=== PATIENT | female | born 1985 | race Caucasian/White ===

== ENCOUNTER 2017-03-29 19:48 | Inpatient (IN) | payer BC ==
[2017-03-29 20:36] LABS: Hematocrit 43 % (35-47); Hemoglobin 14.4 g/dl (12.0-16.0); Mean Corpuscular HGB Conc 34 g/dl (31-36); Mean Corpuscular Hemoglobin 35 pg (27-31); Mean Corpuscular Volume 104 fL (80-97); Mean Platelet Volume 10 um3 (7.4-10.4); Red Blood Count 4.12 10^6/ul (4.0-5.4); Red Cell Distribution Width 13 % (10.5-15); White Blood Count 16.6 10^3/ul (3.5-10.8)
[2017-03-29 20:38] LABS: Urine Bilirubin Negative (Negative); Urine Glucose Negative (Negative); Urine Nitrite Negative (Negative)
[2017-03-29 20:47] LABS: Benzodiazepine Urine Screen None Detected (None Detect)
[2017-03-29 20:51] LABS: ALT 12 U/L (7-52); AST 17 U/L (13-39); Albumin 4.6 g/dL (3.2-5.2); Alkaline Phosphatase 84 U/L (34-104); Anion Gap 9 mmol/L (2-11); BUN/Creatinine Ratio 16.1 (8-20); Blood Urea Nitrogen 10 mg/dL (6-24); CO2 Carbon Dioxide 22 mmol/L (22-32); Calcium 9.6 mg/dL (8.6-10.3); Chloride 106 mmol/L (101-111); EGFR African American 142.6 (>60); EGFR Non-African American 110.9 (>60); Globulin 2.9 g/dL (2-4); Glucose 140 mg/dL (70-100); Potassium 3.5 mmol/L (3.5-5.0); Sodium 137 mmol/L (133-145); Total Protein 7.5 g/dL (6.4-8.9)
[2017-03-29 21:12] LABS: Acetaminophen < 15 mcg/mL; Alcohol < 10 mg/dL (<10); Salicylate < 2.50 mg/dL (<30)
[2017-03-29 21:22] LABS: TSH (Thyroid Stimulating Horm) 0.52 mcIU/mL (0.34-5.60)
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
[2017-03-30] MEDS ORDERED: Acetaminophen TAB* 325 MG PO PRN (05:33)
[2017-03-30] MEDS ORDERED: Nicotine Inhaler* 10 MG AMP INH PRN (05:33)
[2017-03-30] MEDS ORDERED: Nicotine GUM* 2 MG PO PRN (05:33)
[2017-03-30] MEDS ORDERED: Al Hydrox/Mg Hydrox/Simet LIQ* 30 ML UDC PO PRN (05:33)
[2017-03-30] MEDS ORDERED: Mouth Piece, Nicotine* 1 EACH CARTRIDGE INH SCH (05:33)
[2017-03-30] MEDS: Vitamin THERAPEUTIC TAB PO SCH (09:28)
--- NOTE | 2017-03-30 11:05 | PN ---
MHU: Group Therapy Note - Service Type Service Type: [id number] Group Psychotherapy - Cognitive Behavioral Group Therapy ( CBT):Patient was attentive and participatory in CBT programming this morning, and remained in good behavioral control. Patient expressed positive insights regarding relevant treatment interventions and goals.
[2017-03-30] MEDS ORDERED: FLUoxetine CAP* 10 MG PO SCH ×2 (15:00→18:11)
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
[2017-03-30] MEDS ORDERED: diPHENhydraMINE PO* 50 MG PO SCH (21:00)
[2017-03-31 08:23] VITALS: BP 122/85
[2017-03-31] MEDS: Vitamin THERAPEUTIC TAB PO SCH (08:42)
[2017-03-31] MEDS ORDERED: Venlafaxine EXT RELEASE CAP* 75 MG PO SCH (09:00)
[2017-03-31] MEDS ORDERED: Norethindrone (NF) 0.35 MG TAB PO SCH (09:00)
--- NOTE | 2017-03-31 11:32 | PN ---
MHU: Group Therapy Note - Service Type Service Type: [id number] Group Psychotherapy - Cognitive Behavioral Group Therapy ( CBT):Patient was attentive and participatory in CBT programming this morning, and remained in good behavioral control. Patient expressed positive insights regarding relevant treatment interventions and goals.
--- NOTE | 2017-03-31 12:23 | DS ---
Subjective - Subjective Service Types: [id number] Hosp DC Day Mgmt simple under 30 min Discharge Date: 03/31/17 Discharge Planning - Discharge Planning Medications: Current Medications Acetaminophen (Tylenol Tab*) 650 mg PO Q4H PRN PRN Reason: PAIN or TEMP > 101 F Last Admin: 03/30/17 20:32 Dose: 650 mg Al Hydrox/Mg Hydrox/Simethicone (Maalox Plus*) 30 ml PO Q4H PRN PRN Reason: INDIGESTION Device (Nicotine Mouth Piece*) 1 each INH .[facility] Diphenhydramine HCl (Benadryl Po*) 50 mg PO Q6H PRN PRN Reason: AGITATION/INSOMNIA Last Admin: 03/30/17 05:45 Dose: 50 mg Diphenhydramine HCl (Benadryl Po*) 50 mg PO BEDTIME [facility] Last Admin: 03/30/17 20:31 Dose: 50 mg Fluoxetine HCl (Prozac Cap*) 10 mg PO QAM [facility] Last Admin: 03/31/17 08:42 Dose: 10 mg Multivitamins (Theragran Tab*) 1 tab PO DAILY [facility] Last Admin: 03/31/17 08:42 Dose: 1 tab Nicotine (Nicotine Inhaler*) 10 mg INH Q2H PRN PRN Reason: CRAVING Nicotine Polacrilex (Nicotine Gum*) 2 mg PO Q2H PRN PRN Reason: CRAVING Norethindrone (Pauline (Nf)) 0.35 mg PO DAILY [facility] Last Admin: 03/31/17 08:44 Dose: Not Given Venlafaxine HCl (Effexor Xr Cap*) 150 mg PO DAILY [facility] Last Admin: 03/31/17 08:41 Dose: 150 mg Discharge Planning: Prescriptions provided for discharge [] Yes [] No Follow up care details as per social work arrangements. Patient response to discharge plan: [] eager for discharge [] agreeable with discharge plan [] ambivalent about discharge [] disagrees with discharge today
== END 2017-03-31 13:05 | disposition home or self-care (01) | DRG 754 ==
LOC: ED 19:48 → BSU 03-30 05:07
PROVIDERS: ADMIT Psychiatry & Neurology Psychiatry; ATTEND Psychiatry & Neurology Psychiatry
PROC: GZHZZZZ Group Psychotherapy (ICD-10-PCS; principal; 2017-03-30)
DX: F32.9 Major depressive disorder, single episode, unspecified (principal); F41.9 Anxiety disorder, unspecified; F43.10 Post-traumatic stress disorder, unspecified; Z81.8 Family history of other mental and behavioral disorders; K21.9 Gastro-esophageal reflux disease without esophagitis; F17.210 Nicotine dependence, cigarettes, uncomplicated
CPT/HCPCS: 36415; 80053; 80307; 80320; 80329; 81003; 84443; 85025; 90853; 99222; 99238; A9270-GY; G0480

== ENCOUNTER 2017-04-14 19:01 | Emergency (ER) | payer BC ==
[2017-04-14 20:00] VITALS: BP 122/85
== END 2017-04-14 21:33 | disposition left against medical advice (07) ==
LOC: ED 19:01
DX: T88.7XXA Unspecified adverse effect of drug or medicament, initial encounter (principal); T50.905A Adverse effect of unspecified drugs, medicaments and biological substances, initial encounter; Y92.9 Unspecified place or not applicable; Z53.21 Procedure and treatment not carried out due to patient leaving prior to being seen by health care provider
CPT/HCPCS: 99282

== ENCOUNTER 2017-09-07 18:37 | Emergency (ER) | payer BC, MEDICAID ==
[2017-09-07 18:50] VITALS: BP 140/104
[2017-09-07] MEDS ORDERED: Ciproflox/Dexameth OTIC.SUSP* 7.5 ML BTL RIGHT EAR ONE (19:23)
--- NOTE | 2017-09-07 19:23 | ED ---
Throat Pain/Nasal Congestion - HPI Summary HPI Summary: 31F presents with right ear pain for a week. She states she has had decrease in hearing in that ear. She denies any drainage or itching. She denies any wax in the ear. She has been using flonase and sudafed without relief. She denies any fever. She denies any sinus congestion, sore throat, or post nasal drip. She denies any recent illness. She denies any chest pain, SOB, or cough. She has been using ibuprofen without relief. - History of Current Complaint Chief Complaint: EDEarPain Time Seen by Provider: 09/07/17 18:56 - Allergies/Home Medications Allergies/Adverse Reactions: Allergies Allergy/AdvReac Type Severity Reaction Status Date / Time No Known Allergies Allergy Verified 04/14/17 19:57 PMH/Surg Hx/FS Hx/Imm Hx Endocrine/Hematology History: Denies: Hx Anticoagulant Therapy, Hx Diabetes, Hx Thyroid Disease Cardiovascular History: Denies: Hx Congestive Heart Failure, Hx Hypertension, Hx Pacemaker/ICD Respiratory History: Denies: Hx Asthma, Hx Chronic Obstructive Pulmonary Disease (COPD) GI History: Reports: Hx Gastroesophageal Reflux Disease - CONTROL WITH MEDS, Other GI Disorders - GERD History: Denies: Hx Renal Disease Sensory History: Reports: Hx Contacts or Glasses - GLASSES Denies: Hx Hearing Aid Opthamlomology History: Reports: Hx Contacts or Glasses - GLASSES Neurological History: Denies: Hx Dementia, Hx Seizures Psychiatric History: Reports: Hx Anxiety, Hx Depression - on Prozac Denies: Hx Eating Disorder, Hx Substance Abuse - Surgical History Surgery Procedure, Year, and Place: 09/2008 & 01/2016 CSECTION X 2, [facility] Hx Anesthesia Reactions: No - Immunization History Date of Tetanus Vaccine: 2007 Date of Influenza Vaccine: unk Infectious Disease History: No Infectious Disease History: Reports: Hx Clostridium Difficile Denies: Hx Hepatitis, Hx Human Immunodeficiency Virus (HIV), Hx Shingles, Hx Tuberculosis, Traveled Outside the [place] in Last 30 Days - Family History Known Family History: Positive: Unknown - Social History Alcohol Use: None Substance Use Type: Reports: Marijuana Substance Use Comment - Amount & Last Used: a couple of days ago Smoking Status (MU): Light Every Day Tobacco Smoker Type: Cigarettes Amount Used/How Often: OCCASIONAL 1 CIGARETTE PER DAY, SINCE FEBRUARY OF 2016 Have You Smoked in the Last Year: Yes Review of Systems Negative: Fever Positive: Ear Ache Negative: Chest Pain Negative: Shortness Of Breath All Other Systems Reviewed And Are Negative: Yes Physical Exam Triage Information Reviewed: Yes Vital Signs On Initial Exam: Initial Vitals Temp Pulse Resp BP Pulse Ox 99.3 F 90 18 140/104 99 09/07/17 18:47 09/07/17 18:47 09/07/17 18:47 09/07/17 18:47 09/07/17 18:47 Vital Signs Reviewed: Yes Appearance: Positive: Well-Appearing Skin: Positive: Warm, Dry Head/Face: Positive: Normal Head/Face Inspection Eyes: Positive: Normal, EOMI, NICK, Conjunctiva Clear ENT: Positive: Pharynx normal, TMs normal - fluid behind right ear, Other - TM right edematous and erythematous, tenderness with manipulation tragus. Negative : TM bulging, TM red Respiratory/Lung Sounds: Positive: Clear to Auscultation, Breath Sounds Present Cardiovascular: Positive: Normal, RRR Musculoskeletal: Positive: Normal Neurological: Positive: Normal Psychiatric: Positive: Normal Diagnostics - Vital Signs Vital Signs Temp Pulse Resp BP Pulse Ox 09/07/17 18:47 99.3 F 90 18 140/104 99 - Laboratory Lab Statement: Any lab studies that have been ordered have been reviewed, and results considered in the medical decision making process. EENT Course/Dx - Course Course Of Treatment: 31F presents with right ear pain for a week. She states she has had decrease in hearing in that ear. She denies any drainage or itching. She denies any wax in the ear. She has been using flonase and sudafed without relief. She denies any fever. She denies any sinus congestion, sore throat, or post nasal drip. She denies any recent illness. She denies any chest pain, SOB, or cough. She has been using ibuprofen without relief. on exam right ear canal edematous and erythematous. tm fluid behind but no erythema or buldge. will treat with ciprodex. patient understand and agrees with plan. - Differential Diagnoses Differential Diagnoses: Cerumen Impaction, Otitis Externa, Otitis Media - Diagnoses Provider Diagnoses: Otitis externa Discharge - Discharge Plan Condition: Good Disposition: HOME Patient Education Materials: Otitis Externa (ED) Referrals: Tez Whitten MD [Primary Care Provider] - Additional Instructions: Use 4 drops twice a day for 7 days Continue sudafed and flonase Follow up with primary in a week to make sure resolving Return to ED if develop any new or worsening symptoms
== END 2017-09-07 19:36 | disposition home or self-care (01) ==
LOC: ED 18:37
DX: H60.91 Unspecified otitis externa, right ear (principal); F17.210 Nicotine dependence, cigarettes, uncomplicated; K21.9 Gastro-esophageal reflux disease without esophagitis; F41.9 Anxiety disorder, unspecified; F32.9 Major depressive disorder, single episode, unspecified
CPT/HCPCS: 99281; A9270-GY

== ENCOUNTER 2017-10-13 19:32 | Emergency (ER) | payer MEDICAID ==
[2017-10-13] MEDS ORDERED: Morphine INJ* 4 MG/ML 1 ML CARPUJECT IV ONE (21:21)
[2017-10-13] MEDS ORDERED: Metoclopramide IV* 5 MG/ML 2 ML VIAL IV ONE (21:21)
[2017-10-13] MEDS ORDERED: Famotidine IV* 10 MG/ML 2 ML (20 mg) IV ONE (21:21)
[2017-10-13] MEDS ORDERED: NS 0.9% 1000 ML* 1,000 ML IV ONE (21:21)
[2017-10-13 22:12] LABS: ABS Basophils 0.1 10^3/ul (0-0.2); ABS Eosinophils 0.1 10^3/ul (0-0.6); ABS Lymphocytes 4.4 10^3/ul (1.0-4.8); ABS Monocytes 0.8 10^3/ul (0-0.8); ABS Neutrophils 5.8 10^3/ul (1.5-7.7); ABS Nucleated RBC 0 10^3/ul; Eosinophil % 1.2 % (0-6); Hematocrit 44 % (35-47); Hemoglobin 14.9 g/dl (12.0-16.0); Lymphocyte % 39.5 % (25-47); Mean Corpuscular HGB Conc 34 g/dl (31-36); Mean Corpuscular Hemoglobin 35 pg (27-31); Mean Corpuscular Volume 102 fL (80-97); Mean Platelet Volume 10 um3 (7.4-10.4); Nucleated Red Blood Cells % 0; Platelet Count 243 10^3/ul (150-450); Red Cell Distribution Width 12 % (10.5-15); White Blood Count 11.2 10^3/ul (3.5-10.8)
[2017-10-13 22:30] LABS: EGFR Non-African American 99.6 (>60)
[2017-10-13] MEDS ORDERED: Iohexol 300* (CONTRAST) 10 ML SDV IV ONE (22:33)
--- NOTE | 2017-10-13 23:55 | ED ---
Hamzah Woods Stephanie, scribed for Paramjit Pacheco MD on 10/13/17 at 2128 . Abdominal Pain/Female - HPI Summary HPI Summary: The pt is a 31 y/o F presenting to the ED with c/o abd pain in that began at 19: 30 today. The pain is located in the LUQ and began after eating. Pt denies nausea and fever. Alleviating factors include vomiting. Pt has hx of same symptoms without treatment intermittently for past 8 months. Pt had a BM today. - History of Current Complaint Chief Complaint: EDAbdPain Stated Complaint: ABD PAIN Time Seen by Provider: 10/13/17 21:14 Hx Obtained From: Patient Hx Last Menstrual Period: UNK ?: No Onset/Duration: Sudden Onset - s/p eating dinner, Lasting Hours - 2, Still Present Timing: Constant Severity Currently: Severe Pain Intensity: 8 Pain Scale Used: 0-10 Numeric Location: Discrete At: LUQ Radiates: No Aggravating Factor(s): Nothing Alleviating Factor(s): Vomiting Associated Signs and Symptoms: Negative: Fever, Nausea Allergies/Adverse Reactions: Allergies Allergy/AdvReac Type Severity Reaction Status Date / Time No Known Allergies Allergy Verified 04/14/17 19:57 PMH/Surg Hx/FS Hx/Imm Hx Endocrine/Hematology History: Denies: Hx Anticoagulant Therapy, Hx Diabetes, Hx Thyroid Disease Cardiovascular History: Denies: Hx Congestive Heart Failure, Hx Hypertension, Hx Pacemaker/ICD Respiratory History: Denies: Hx Asthma, Hx Chronic Obstructive Pulmonary Disease (COPD) GI History: Reports: Hx Gastroesophageal Reflux Disease - CONTROL WITH MEDS, Other GI Disorders - GERD History: Denies: Hx Renal Disease Sensory History: Reports: Hx Contacts or Glasses - GLASSES Denies: Hx Hearing Aid Opthamlomology History: Reports: Hx Contacts or Glasses - GLASSES Neurological History: Denies: Hx Dementia, Hx Seizures Psychiatric History: Reports: Hx Anxiety, Hx Depression - on Prozac Denies: Hx Eating Disorder, Hx Substance Abuse - Surgical History Surgery Procedure, Year, and Place: 09/2008 & 01/2016 CSECTION X 2, [facility] Hx Anesthesia Reactions: No - Immunization History Date of Tetanus Vaccine: 2007 Date of Influenza Vaccine: unk Infectious Disease History: No Infectious Disease History: Reports: Hx Clostridium Difficile Denies: Hx Hepatitis, Hx Human Immunodeficiency Virus (HIV), Hx Shingles, Hx Tuberculosis, Traveled Outside the [place] in Last 30 Days - Family History Known Family History: Positive: Unknown - Pt denies family history when asked - Social History Occupation: Employed Full-time Lives: Alone Alcohol Use: None Substance Use Type: Reports: Marijuana Substance Use Comment - Amount & Last Used: a couple of days ago Smoking Status (MU): Light Every Day Tobacco Smoker Type: Cigarettes Amount Used/How Often: OCCASIONAL 1 CIGARETTE PER DAY, SINCE FEBRUARY OF 2016 Have You Smoked in the Last Year: Yes Review of Systems Negative: Fever Positive: Abdominal Pain. Negative: Nausea All Other Systems Reviewed And Are Negative: Yes Physical Exam - Summary Physical Exam Summary: VITAL SIGNS: Reviewed. GENERAL: Patient is a well-developed and nourished FEMALE who is lying comfortable in the stretcher. Patient is not in any acute respiratory distress. HEAD AND FACE: No signs of trauma. No ecchymosis, hematomas or skull depressions. No sinus tenderness. EYES: PERRLA, EOMI x 2, No injected conjunctiva, no nystagmus. EARS: Hearing grossly intact. Ear canals and tympanic membranes are within normal limits. MOUTH: Oropharynx within normal limits. NECK: Supple, trachea is midline, no adenopathy, no JVD, no carotid bruit, no c- spine tenderness, neck with full ROM. CHEST: Symmetric, no tenderness at palpation LUNGS: Clear to auscultation bilaterally. No wheezing or crackles. CVS: Regular rate and rhythm, S1 and S2 present, no murmurs or gallops appreciated. ABDOMEN: Soft, LUQ tenderness. No signs of distention. No rebound no guarding, and no masses palpated. Hyperactive bowel sounds EXTREMITIES: FROM in all major joints, no edema, no cyanosis or clubbing. NEURO: Alert and oriented x 3. No acute neurological deficits. Speech is normal and follows commands. SKIN: Dry and warm Triage Information Reviewed: Yes Vital Signs On Initial Exam: Initial Vitals Temp Pulse Resp BP Pulse Ox 97.6 F 104 18 138/94 99 10/13/17 19:44 10/13/17 19:44 10/13/17 19:44 10/13/17 19:44 10/13/17 19:44 Vital Signs Reviewed: Yes Diagnostics - Vital Signs Vital Signs Temp Pulse Resp BP Pulse Ox 10/13/17 19:44 97.6 F 104 18 138/94 99 - Laboratory Result Diagrams: 10/13/17 22:00 10/13/17 22:00 Lab Statement: Any lab studies that have been ordered have been reviewed, and results considered in the medical decision making process. - CT abdomen/pelvis CT Interpretation: Positive (See Comments) CT Interpretation Completed By: Radiologist - 1)No evidence for acute finding or cause for the patient's abd pain is seen. 2)Large amount of stool throughout the colon suggestive of constipation. 3)Mild slenomegaly unchanged. 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 Abdominal Pain Fem Course/Dx - Course Course Of Treatment: The pt reports that she is feeling better. ED physician discusses the CT results with pt. The pt has a large hiatal hernia that is the source of her symptoms. Pt will be discharged home with protonix. The pt is advised to follow up with a surgeon to address hiatal hernia. - Diagnoses Provider Diagnoses: Hiatal hernia Discharge - Discharge Plan Condition: Stable Disposition: HOME Prescriptions: Pantoprazole TAB (NF) [Protonix TAB (NF)] 40 mg PO DAILY #30 tab Patient Education Materials: Hiatal Hernia (ED) Referrals: Tez Whitten MD [Primary Care Provider] - Additional Instructions: RETURN TO EMERGENCY DEPARTMENT FOR ANY NEW OR WORSENING SYMPTOMS. Follow-up with surgeon to address hiatal hernia. The documentation as recorded by the Hamzah lipscomb Stephanie accurately reflects the service I personally performed and the decisions made by , Paramjit Pacheco MD.
[2017-10-14 00:14] VITALS: BP 129/82
--- NOTE | 2017-10-14 07:37 | RAD ---
CLINICAL HISTORY: Abdominal pain COMPARISON: June 02, 2013 TECHNIQUE: Multiple contiguous axial CT scans were obtained of the abdomen and pelvis after the administration of intravenous contrast. Coronal and sagittal multiplanar reformations are submitted for review. Oral contrast was administered. Delayed images were obtained through the abdomen and pelvis. FINDINGS: LUNG BASES: There is minimal compressive atelectasis of the left lower lobe. LIVER: The liver is normal in shape, size, contour, and attenuation. BILE DUCTS: There is no intrahepatic or extrahepatic biliary dilatation. GALLBLADDER: The gallbladder is normal, without pericholecystic inflammatory change. PANCREAS: The pancreas is normal, without mass or ductal dilatation. SPLEEN: Normal in size and appearance. UPPER GI TRACT: Evaluation of the gastrointestinal tract is limited by incomplete gastric distention. There is a large paraesophageal hiatal hernia. SMALL BOWEL AND MESENTERY: The small bowel is normal in contour, course, and caliber. There is no obstruction or dilatation. COLON: The colon is normal in contour, course, caliber. There is no pericolonic inflammatory change. There is a tubular, vermiform, hollow viscus that is blind ending, and originates from the cecum, consistent with a normal appendix. There is no periappendiceal inflammatory change. This is best seen on axial images 60-63.. ADRENALS: Normal bilaterally. KIDNEYS: The kidneys are normal in shape, size, contour, and axis. There is no hydronephrosis or nephrolithiasis. BLADDER: The bladder is smooth in contour. PELVIC ORGANS: The uterus and adnexa are grossly normal for technique. AORTA: The aorta is normal. IVC: Unremarkable LYMPH NODES: There is no lymphadenopathy by size criteria. ABDOMINAL WALL: There is a tiny fat-containing abdominal hernia. BONES AND SOFT TISSUES: There is mild levocurvature of the spine. OTHER: None IMPRESSION: LARGE HIATAL HERNIA, WITH ASSOCIATED COMPRESSIVE ATELECTASIS OF THE LEFT LOWER LOBE.
== END 2017-10-14 00:12 | disposition home or self-care (01) ==
LOC: ED 19:32
DX: K44.9 Diaphragmatic hernia without obstruction or gangrene (principal); R10.12 Left upper quadrant pain; R10.9 Unspecified abdominal pain; F17.210 Nicotine dependence, cigarettes, uncomplicated
CPT/HCPCS: 36415; 74177; 80053; 82150; 83690; 84702; 85025; 86140; 96374; 96375; 99284; J2270; J2765; Q9967

== ENCOUNTER 2017-11-04 17:27 | Emergency (ER) | payer MEDICAID, OTHER ==
--- OUTSIDE RECORDS SUMMARY | 2017-11-04 18:24 | XMS REPORT ---
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 PayID: [id number] [place] [address] Meditalpa Part B Effective: Policy Number: Nadir Sharp R 07/26/2013 [id number] Davina Expires: 03/24/2015 Group Name: Wally LIUHP [address] [address] PayID: [id number] KODAK Santamaria [id number] Medigap Part B Effective: Policy Number: Nadir Sharp R 03/25/2015 [id number] Davina Expires: 09/24/2016 Group Name: Karlie Mckeon HDHP [address] [address] PayID: [id number] KODAK Santamaria [id number] Medigap Part B Effective: Policy Number: Nadir Sharp R 09/25/2016 [id number] Davina Expires: 07/24/2017 Group Name: Redd [address] [address] PayID: [id number] KODAK Santamaria [id number] Medigap Part B Effective: Policy Number: Medicaid/Computer Kris R 08/25/2017 [id number] LoggedIn Davina Expires: 09/24/2017 Group Name: 1 1 [address] PayID: [id number] [place] [address] Commercial Effective: Policy Number: Caleb Castillo 09/25/2017 [id number] Medicaid Ghosh PayID: [id number] [address] [place] [address] Problems Description No Active Problems Family History Date Family Member(s) Problem(s) Comments : (age 60 Father due to Pneumonia and first [place] Years) Mother Thyroid Disease Children 1 Siblings 3 First Brother Asthma First Brother due to Suicide () First Brother Bipolar Disorder Second Brother brain cancer Third Brother Unknown : (age 82 Paternal Grandfather due to Multiple Years) Sclerosis Paternal Grandmother Osteoporosis Paternal Grandmother due to "Old Age" () Maternal Grandfather [place] Maternal Grandfather due to [place] () Maternal Grandmother Ulcerative Colitis Maternal Grandmother due to Kidney () Disease Maternal Grandmother Hepatitis C Social History Type Date Description Comments Marital Status Lives With Daughter (shares custody with her former ) Diet "Horrible" high cholesterol, high fat. [employer]. Occupation Works In D[employer] Cigarette Use Current Cigarette Smoker 5-10 Cigarettes Daily ETOH Use Drinks About 1 Drink A Week Exercise Type/Frequency Does not exercise STD's No STD History Allergies, Adverse Reactions, Alerts Date Description Reaction Status Severity Comments 07/06/2006 NKDA active Medications Medication Date Status Form Strength Qnty SIG Indications Ordering Provider Flonase Allergy 09/04 Active Suspension 50mcg/Act 9.900 use 2 Shawnti R. ml sprays in Storm, each [employer] nostril every day Venlafaxine HCL 07/03 Active Caps ER 75mg 7caps 1 by mouth F32.89 Tez ER /2016 24HR every day Roderick Whitten Ibuprofen 01/23 Active Tablets 600mg 120ta take one bs tablet by Tracey, mouth 4 [employer] times daily with food as needed for pain 07/18 Active Tablets 27-0.8mg 90tab Take One Shawnti R. /2015 s Tablet By Storm, Mouth [employer] Every Day Indy 02/28 Active Tablets 0.35mg 84tab Take One Shawnti R. s Tablet By Storm, Mouth [employer] Every Day Prevacid 10/[address] 30mg 60cap take one K21.9 Shawnti R. s capsule Storm, daily. [employer] Venlafaxine HCL 04/07 Hx Caps ER 150mg 30cap 1 by mouth F32.89 Shawnti R. ER 24HR s every day Storm, - [employer] 07/03 Penicillin V 01/23 Hx Tablets 500mg 30tab 1 tab by K03.2 Monique Potassium s mouth Tracey, - three [employer] 04/06 times day x 10 days Oxycodone-Acetam 01/16 Hx Tablets 5-325mg 21tab 1 by mouth K03.2 Chriswnti R. inophen s three , - times [employer] 01/30 daily needed for pain prior to meals Hydrocodone-Acet 01/05 Hx Tablets 5-325mg 30tab 1 by mouth K03.2 Shawnti R. aminophen s an hour , - before [employer] 01/16 meals, to 4 times daily Fluoxetine HCL 12/19 Hx Capsules 10mg 90cap 1 by mouth F33.1 Chriswnti R. s every , - morning [employer] 10/16 Percocet 12/15 Hx Tablets 5-325mg 42tab 1 tab by K03.2 Chriswnti R. s mouth Nikolas, - three [employer] 01/05 times day as needed Effexor XR 11/21 Hx Caps ER 75mg 30cap 1 by mouth F32.89 Shawnti R. /2016 24HR s every day , - [employer] 04/07 Gabapentin 10/19 Hx Capsules 300mg 35cap take 1-2 Blanca s capsules P. Blegen, - by mouth M.D. 01/30 times a day as needed- Ok To Fill Tonight Neurontin 09/08 Hx Capsules 100mg 60cap 2 by mouth Shawnti R. /2015 s three Storm, - times a [employer] 12/12 day needed Buspirone HCL 08/03 Hx Tablets 10mg 45tab take 1 F41.9 s tablet by Hussain, - mouth 3 MD 10/16 times day as needed for anxiety Propranolol HCL 08/03 Hx Tablets 10mg 30tab 1 tab by F41.9 Manish s mouth Hussain, - three MD 10/16 times day as needed for anxiety Nabumetone 07/29 Hx Tablets 750mg 60tab 1 tab by K03.2 Bin s mouth Iveth - twice III, [employer] 04/07 daily Oxycodone HCL 07/29 Hx Tablets 5mg 10tab 1 tab by K03.2 s mouth up Hussain, - to twice a MD 09/07 day needed for severe dental pain Cephalexin 07/02 Hx Tablets 500mg 40tab take 1 O91.23 s tablet by Tracey, - mouth four [employer] 07/29 times day x 10 days Oxycodone-Acetam 07/02 Hx Tablets 5-325mg 4tabs take one O91.23 Monique phen tablet by Tracey, - mouth [employer] 07/29 twice day as needed for pain Dicloxacillin 05/05 Hx Capsules 500mg 30cap 1 po tid O91.23 Shawnti R. Sodium /2015 s for 10 Storm, - days [employer] 05/15 Percocet 02/17 Hx Tablets 5-325mg 20tab 1-2 po Manish s q4hrs prn Hussain, - 07/02 Sulfacetamide 02/15 Hx Solution 10% 15ml 2 drops H10.023 Shawnti R. Sodium right eye Storm, - four times [employer] 02/25 a day for 5 days Carafate 10/24 Hx Suspension 1GM/10ML 180un 5-10 ml by K21.9 its mouth Hussain, - three MD 11/04 times a day as needed 1 06/30 Hx Capsules 30-0.975- 90cap 1 po daily Shawnti R. 200mg s Nikolas, - [employer] 07/18 Ranitidine HCL 06/30 Hx Capsules 150mg 60cap one by Shawnti R. s mouth Nikolas, - twice [employer] 07/29 daily needed for heart burn Fluoxetine HCL 06/30 Hx Capsules 20mg 90cap Take One F33.1 Shawnti R. s Capsule By Nikolas, - Mouth [employer] 12/19 Every Day Hydrocodone-Acet 06/15 Hx Tablets 5-325mg 20tab 1 by mouth Monique aminophen s q4 - 6 Tracey, - hours as [employer] 06/30 needed Omeprazole 04/[address] 40mg 30cap 1 by mouth s every day Tracey, - [employer] 06/30 Carisoprodol 04/07 Hx Tablets 350mg 30thi 1 tablet 724.5 rty three Tracey, - times a [employer] 06/30 day needed muscle spasm Pantoprazole 01/[address] 40mg 90tab 1 by mouth Tez Escamilla s every day Dov Whitten M.DAlice 04/07 Indy 01/02 Hx Tablets 0.35mg 90tab 1 by mouth V25.9 Chriswnti R. s every day , - [employer] 06/30 Trazodone HCL 01/02 Hx Tablets 50mg 30tab 1 tablet 780.52 Chriswnti R. s po at , - bedtime if [employer] 04/07 needed for sleep Sulfamethoxazole 10/15 Hx Tablets 800-160mg 6tabs 1 by mouth 599.0 Tez /Trimethoprim twice a Fish, - day x 3 M.D. Clindamycin HCL 08/26 Hx Capsules 300mg 30cap 1 by mouth Chriswnti R. s three Nikolas, - times a [employer] 09/05 day for days for Infection Augmentin 08/25 Hx Tablets 875-125mg 20tab 1 by mouth Chriswnti R. s twice a Storm, - day for [employer] 08/26 infection Ferrous 03/16 Hx Tablets 324(38Fe) 60tab 1 by mouth Monique Gluconate /2013 mg s qd-bid Tracey, - [employer] 04/07 Sulfacetamide 02/08 Hx Solution 10% 1bott 2 drops Shawnti R. Sodium /2013 le both eyes , - 4 times [employer] 04/07 daily for 5 days Mirena 02/06 Hx IUD 20mcg/24H placed January Shawnti R. /2013 R 2014, - [employer] 04/07 Tizanidine HCL 02/04 Hx Tablets 2mg 30tab take 1-2 724.5 s tablets by Fish, - mouth M.D. 04/07 every hours as needed Clindamycin HCL 08/26 Hx Capsules 300mg 28cap one tablet 522.5 s po every 6 Stephanie Whittington, - hours M.D. 09/02 Hydroxyzine HCL 08/26 Hx Tablets 25mg 30tab take one 708.0 s tablet po Stephanie Whittington, - every 4-6 M.D. 01/02 hours needed for itch Clonidine HCL 08/26 Hx Tablets 0.1mg 30tab 1 po bid 300.02 Izabella s or tid prn Stephanie Whittington, - anxiety M.D. 04/07 and depression Cetirizine HCL 08/20 Hx Tablets 10mg 30tab 1 po qd 708.0 debra Whitten, - M.D. 04/07 Mirtazapine Odt 04/10 Hx Tablets 15mg 60tab 1-2 po qhs 311 Dispers s Fish - M.D. 04/07 To Whom It January 29 Hx 1unit Kris 311 s was seen Fish, - in our M.D. 05/10 /2012 today. Amoxicillin/Clav 12/14 Hx Tablets 875-125mg 20tab 1 tablet 528.5 Moniqueimani dominguez s bid x 10 Tracey, Potassium - days [employer] 08/12 Metronidazole 07/17 Hx Tablets 500mg 42tab take 1 s tablet po Tracey, - tid x 14 [employer] Dicyclomine HCL 07/16 Hx Tablets 20mg 40tab 1 tablet s po qid Tracey, - [employer] 12/14 Cyclobenzaprine 07/13 Hx Tablets 5mg 30tab 1/2-2 po s tid prnFish, - will cause M.D. 01/17 drowsiness Omeprazole 07/[address] 20mg 60cap Take One s Capsule By Tracey, - Mouth [employer] 01/09 Twice A Day Excuse For Work 06/16 Hx Kris 465.9 needs to Fish, - be out of M.D. 06/26 work 06/16 and 06/17/11 due to an illness. Triamcinolone 06/09 Hx Cream 0.1% 30gm apply to fingers Fish, - and toes M.D. 07/29 qhs Hydroxyzine HCL 06/09 Hx Tablets 50mg 60tab 1-2 po qhs s q6hrs Fish - M.D. 01/23 Sprintec 28 01/25 Hx Tablets 0.25-35mg -mcg - 02/20 Excuse For Work 12/03 Hx Kris 465.9 was seen Fish, - in our M.D. 01/02 office today for an illness Return To Work 10/05 Hx ok to return to Fish, - work M.D. 11/0410/18/10 Prilosec 12/[address] 20mg 60cap 1 po bid s Fish, - M.D. 07/05 Thumb Spica 11/21 Hx 1unit for Splint s deQuervain Fish - s M.D. 02/19 tenosynovi tis Citalopram 01/02 Hx Tablets 40mg 45tab Take 1 And Hydrobromide s / Tablet Fish - Once Daily M.D. 06/30 Amoxicillin 11/12 Hx Tablets 500mg 40tab 2 bid X 10 Hipolito s Dov Zhang M.D. 01/29 Excuse From Work 11/12 Hx she is Hipolito acutely Rc, Dov ill, M.D. 11/22 needed be off work today,may return to work monday11/16/07. Lunesta 08/22 Hx Tablets 3mg 20tab 1 qhs prn Dov Grimm M.D. 11/12 Prilosec OTC 08/[address] 20mg 60tab 1 po bid 787.1 Dov GrimmDAlice 02/07 Carafate 08/08 Hx Tablets 1gm 50tab 1 qid 1 hr s before Dov Whitten meals and M.DAlice 10/23 Prilosec OTC 07/[address] 20mg 30tab 1 po qd 787.1 Dov Grimm M.D. 08/20 Ranitidine HCL 07/31 Hx Tablets 150mg 60tab 1 po s qd-bid Dov Whitten M.D. 01/17 Prilosec OTC 11/01 Hx Capsules 20mg 60cap 2 po qd 787.1 Dov Grimm M.D. 07/31 Excuse From Work 11/01 Hx PT was in our clinic Dov Whitten. MAliceDAlice 11/06 Needs be out of work today. Lunesta 07/06 Hx Tablets 2mg 1 qhs prn Dov Whtiten M.D. 08/22 Excuse From Work 07/06 Hx PT was in 558.9 our clinic Dov Whitten. M.DAlice 07/11 Needs be out of work today, Ok to return Monday. Effexor XR 03/25 Hx Capsules 75mg 30cap 1 po qd s - 11/01 Immunizations CPT Code Status Date Vaccine Lot # [id number] Given 05/25/2017 Influenza Virus Vaccine, Quadrivalent, 3 Yr > [id number] Quad, Preserv Free [id number] Given 08/11/2016 Influenza Virus Vaccine, Quadrivalent, 3 Yr > [id number] Quad, Preserv Free Vital Signs Date Vital Result Comment 10/24/2017 Weight 128.00 lb Weight in kg's 58.061 BP Systolic 118 mmHg BP Diastolic 74 mmHg Heart Rate 88 /min Body Temperature 98.2 F Respiratory Rate 16 /min 10/17/2017 Weight 125.00 lb Weight in kg's 56.700 BP Systolic 100 mmHg BP Diastolic 65 mmHg Heart Rate 78 /min Body Temperature 97.5 F Respiratory Rate 16 /min O2 % BldC Oximetry 98 % 04/07/2017 Weight 115.00 lb Weight in kg's 52.164 BP Systolic 100 mmHg BP Diastolic 65 mmHg Heart Rate 80 /min Body Temperature 98.6 F 01/23/2017 BP Systolic 115 mmHg BP Diastolic 78 mmHg Heart Rate 72 /min Body Temperature 98.4 F 01/05/2017 Weight 120.00 lb Weight in kg's 54.432 BP Systolic 124 mmHg BP Diastolic 70 mmHg Heart Rate 80 /min Body Temperature 97.8 F 01/02/2017 Weight 121.00 lb Weight in kg's 54.886 BP Systolic 120 mmHg BP Diastolic 64 mmHg Heart Rate 93 /min Body Temperature 98.3 F Respiratory Rate 12 /min 12/19/2016 Weight 121.00 lb Weight in kg's 54.886 BP Systolic 110 mmHg BP Diastolic 70 mmHg Heart Rate 88 /min 12/15/2016 Weight 120.00 lb Weight in kg's 54.432 BP Systolic 120 mmHg BP Diastolic 80 mmHg Heart Rate 78 /min Body Temperature 99.4 F Respiratory Rate 12 /min 11/21/2016 Weight 117.00 lb Weight in kg's 53.071 BP Systolic 110 mmHg BP Diastolic 75 mmHg Heart Rate 100 /min 09/08/2016 Weight 130.00 lb Weight in kg's 58.968 BP Systolic 130 mmHg BP Diastolic 70 mmHg Heart Rate 80 /min Body Temperature 99.8 F Respiratory Rate 12 /min 08/03/2016 Weight 131.00 lb Weight in kg's 59.422 BP Systolic 106 mmHg BP Diastolic 66 mmHg Heart Rate 96 /min Respiratory Rate 18 /min 07/29/2016 Weight 131.00 lb Weight in kg's 59.422 BP Systolic 118 mmHg BP Diastolic 62 mmHg Heart Rate 88 /min Body Temperature 98.6 F Respiratory Rate 17 /min O2 % BldC Oximetry 98 % 07/02/2016 Weight 135.00 lb Weight in kg's 61.236 BP Systolic 120 mmHg BP Diastolic 85 mmHg Heart Rate 68 /min Body Temperature 97.7 F 05/05/2016 Weight 135.00 lb Weight in kg's 61.236 BP Systolic 111 mmHg BP Diastolic 73 mmHg Heart Rate 100 /min Body Temperature 99.5 F 02/16/2016 Weight 134.00 lb Weight in kg's 60.782 BP Systolic 116 mmHg BP Diastolic 68 mmHg Heart Rate 104 /min Body Temperature 98.3 F 10/24/2015 Weight 141.00 lb Weight in kg's 63.958 BP Systolic 100 mmHg BP Diastolic 56 mmHg Heart Rate 92 /min Body Temperature 98.7 F 06/30/2015 Weight 138.00 lb Weight in kg's 62.597 BP Systolic 102 mmHg BP Diastolic 64 mmHg Heart Rate 88 /min 06/15/2015 Weight 138.00 lb Weight in kg's 62.597 BP Systolic 102 mmHg BP Diastolic 66 mmHg Heart Rate 88 /min Body Temperature 99.0 F 04/07/2015 Weight 145.00 lb Weight in kg's 65.772 BP Systolic 110 mmHg BP Diastolic 70 mmHg Heart Rate 80 /min Body Temperature 97.7 F 02/18/2015 Weight 148.00 lb Weight in kg's 67.133 BP Systolic 110 mmHg BP Diastolic 70 mmHg Heart Rate 90 /min Body Temperature 98.0 F O2 % BldC Oximetry 99 % 01/02/2015 Weight 147.00 lb Weight in kg's 66.679 BP Systolic 106 mmHg BP Diastolic 72 mmHg Heart Rate 96 /min 10/15/2014 Weight 149.00 lb Weight in kg's 67.586 BP Systolic 134 mmHg BP Diastolic 74 mmHg Heart Rate 88 /min Body Temperature 97.7 F 08/25/2014 Weight 147.00 lb Weight in kg's 66.679 BP Systolic 120 mmHg BP Diastolic 90 mmHg Heart Rate 68 /min 08/05/2014 Weight 149.00 lb Weight in kg's 67.586 BP Systolic 96 mmHg BP Diastolic 64 mmHg Heart Rate 76 /min Body Temperature 99.0 F 03/14/2014 Weight 141.00 lb Weight in kg's 63.958 BP Systolic 122 mmHg BP Diastolic 64 mmHg Heart Rate 80 /min Body Temperature 97.6 F 02/06/2014 Weight 140.00 lb Weight in kg's 63.504 BP Systolic 112 mmHg BP Diastolic 72 mmHg Heart Rate 96 /min 02/04/2014 Weight 140.00 lb Weight in kg's 63.504 BP Systolic 118 mmHg BP Diastolic 66 mmHg Heart Rate 92 /min Body Temperature 98.1 F Height 65.5 inches 5'5.50" BMI (Body Mass Index) 22.9 kg/m2 08/26/2013 Weight 151.00 lb Weight in kg's 68.494 BP Systolic 120 mmHg BP Diastolic 78 mmHg Heart Rate 100 /min Body Temperature 98.9 F 08/20/2013 Weight 148.00 lb Weight in kg's 67.133 BP Systolic 124 mmHg BP Diastolic 80 mmHg Heart Rate 72 /min Body Temperature 97.8 F 04/10/2013 Weight 148.00 lb Weight in kg's 67.133 BP Systolic 120 mmHg BP Diastolic 80 mmHg Heart Rate 92 /min Body Temperature 98.5 F 12/25/2012 Weight 154.00 lb Weight in kg's 69.854 BP Systolic 114 mmHg BP Diastolic 70 mmHg Heart Rate 80 /min Body Temperature 97.6 F O2 % BldC Oximetry 98 % 12/14/2012 Weight 155.00 lb Weight in kg's 70.308 BP Systolic 110 mmHg BP Diastolic 70 mmHg Heart Rate 92 /min Body Temperature 98.3 F Height 65.5 inches 5'5.50" BMI (Body Mass Index) 25.4 kg/m2 07/31/2012 Weight 153.00 lb Weight in kg's 69.401 BP Systolic 114 mmHg BP Diastolic 70 mmHg Heart Rate 88 /min Body Temperature 96.3 F 07/16/2012 Weight 151.00 lb Weight in kg's 68.494 BP Systolic 100 mmHg BP Diastolic 60 mmHg Heart Rate 76 /min Body Temperature 98.6 F 01/25/2012 Weight 153.00 lb Weight in kg's 69.401 BP Systolic 110 mmHg BP Diastolic 80 mmHg Heart Rate 88 /min Body Temperature 98.6 F 01/09/2012 Weight 155.00 lb Weight in kg's 70.308 BP Systolic 110 mmHg BP Diastolic 76 mmHg Heart Rate 96 /min Body Temperature 98.7 F 07/18/2011 Weight 153.00 lb Weight in kg's 69.401 BP Systolic 110 mmHg BP Diastolic 70 mmHg Heart Rate 88 /min Body Temperature 98.5 F 06/30/2011 Weight 152.00 lb Weight in kg's 68.947 BP Systolic 110 mmHg BP Diastolic 68 mmHg Heart Rate 72 /min Body Temperature 98.6 F 06/16/2011 Weight 151.00 lb Weight in kg's 68.494 BP Systolic 106 mmHg BP Diastolic 70 mmHg Heart Rate 84 /min Body Temperature 98.8 F Last Menstrual Period 0 O2 % BldC Oximetry 98 % 06/09/2011 Weight 152.00 lb Weight in kg's 68.947 BP Systolic 100 mmHg BP Diastolic 90 mmHg Heart Rate 84 /min Body Temperature 98.7 F Height 65.75 inches 5'5.75" BMI (Body Mass Index) 24.7 kg/m2 12/03/2010 Weight 160.00 lb Weight in kg's 72.576 BP Systolic 124 mmHg BP Diastolic 88 mmHg Heart Rate 108 /min 10/05/2010 Weight 157.00 lb Weight in kg's 71.215 BP Systolic 98 mmHg BP Diastolic 72 mmHg Heart Rate 60 /min Body Temperature 97.8 F 12/15/2009 Weight 166.00 lb Weight in kg's 75.298 BP Systolic 128 mmHg BP Diastolic 84 mmHg Heart Rate 68 /min 11/21/2008 Weight 144.00 lb Weight in kg's 65.318 BP Systolic 124 mmHg BP Diastolic 80 mmHg Heart Rate 68 /min 01/30/2008 Weight 146.00 lb Weight in kg's 66.226 BP Systolic 120 mmHg BP Diastolic 60 mmHg Heart Rate 64 /min Height 65 inches 5'5" BMI (Body Mass Index) 24.3 kg/m2 01/03/2008 Weight 155.00 lb Weight in kg's 70.308 BP Systolic 112 mmHg BP Diastolic 72 mmHg Heart Rate 83 /min Height 65 inches 5'5" BMI (Body Mass Index) 25.8 kg/m2 11/12/2007 Weight 154.00 lb Weight in kg's 69.854 BP Systolic 104 mmHg BP Diastolic 56 mmHg Body Temperature 99.4 F Height 65 inches 5'5" BMI (Body Mass Index) 25.6 kg/m2 10/23/2007 Weight 154.00 lb Weight in kg's 69.854 BP Systolic 100 mmHg BP Diastolic 80 mmHg Heart Rate 92 /min Height 65 inches 5'5" BMI (Body Mass Index) 25.6 kg/m2 08/22/2007 Weight 147.00 lb Weight in kg's 66.679 BP Systolic 110 mmHg BP Diastolic 60 mmHg Heart Rate 92 /min Height 65 inches 5'5" BMI (Body Mass Index) 24.5 kg/m2 08/08/2007 Weight 148.00 lb Weight in kg's 67.133 BP Systolic 110 mmHg BP Diastolic 70 mmHg Heart Rate 80 /min Body Temperature 98.1 F Height 65 inches 5'5" BMI (Body Mass Index) 24.6 kg/m2 07/31/2007 Weight 145.00 lb Weight in kg's 65.772 BP Systolic 116 mmHg BP Diastolic 78 mmHg Heart Rate 98 /min Height 65 inches 5'5" BMI (Body Mass Index) 24.1 kg/m2 11/01/2006 Weight 135.00 lb Weight in kg's 61.236 BP Systolic 110 mmHg BP Diastolic 70 mmHg Heart Rate 76 /min Respiratory Rate 18 /min Height 65 inches 5'5" BMI (Body Mass Index) 22.5 kg/m2 07/06/2006 Weight 128.00 lb Weight in kg's 58.061 BP Systolic 102 mmHg BP Diastolic 68 mmHg Heart Rate 100 /min Body Temperature 98.2 F Results Test Date Test Result H/L Range Note CBC Auto Diff 10/13/2017 White Blood Count 11.2 10^3/uL High 3.5-10.8 Red Blood Count 4.30 10^6/uL 4.0-5.4 Hemoglobin 14.9 g/dL 12.0-16.0 Hematocrit 44 % 35-47 Mean Corpuscular Volume 102 fL High 80-97 Mean Corpuscular Hemoglobin 35 pg High 27-31 Mean Corpuscular HGB Conc 34 g/dL 31-36 Red Cell Distribution Width 12 % 10.5-15 Platelet Count 243 10^3/uL 150-450 Mean Platelet Volume 10 um3 7.4-10.4 Abs Neutrophils 5.8 10^3/uL 1.5-7.7 Abs Lymphocytes 4.4 10^3/uL 1.0-4.8 Abs Monocytes 0.8 10^3/uL 0-0.8 Abs Eosinophils 0.1 10^3/uL 0-0.6 Abs Basophils 0.1 10^3/uL 0-0.2 Abs Nucleated RBC 0 10^3/uL Granulocyte % 52.0 % 38-83 Lymphocyte % 39.5 % 25-47 Monocyte % 6.8 % 1-9 Eosinophil % 1.2 % 0-6 Basophil % 0.5 % 0-2 Nucleated Red Blood Cells % 0 Laboratory test finding 05/25/2017 Lead LOW Laboratory test finding 04/14/2017 Miscellaneous Test See Comment 1 CBC Auto Diff 04/14/2017 White Blood Count 11.8 10^3/uL High 3.5-10.8 Red Blood Count 3.92 10^6/uL Low 4.0-5.4 Hemoglobin 13.6 g/dL 12.0-16.0 Hematocrit 41 % 35-47 Mean Corpuscular Volume 106 fL High 80-97 2 Mean Corpuscular Hemoglobin 35 pg High 27-31 Mean Corpuscular HGB Conc 33 g/dL 31-36 Red Cell Distribution Width 13 % 10.5-15 Platelet Count 229 10^3/uL 150-450 Mean Platelet Volume 10 um3 7.4-10.4 Abs Neutrophils 7.6 10^3/uL 1.5-7.7 Abs Lymphocytes 2.8 10^3/uL 1.0-4.8 Abs Monocytes 1.2 10^3/uL High 0-0.8 Abs Eosinophils 0.1 10^3/uL 0-0.6 Abs Basophils 0.1 10^3/uL 0-0.2 Abs Nucleated RBC 0.01 10^3/uL Granulocyte % 64.6 % 38-83 Lymphocyte % 24.1 % Low 25-47 Monocyte % 10.2 % High 1-9 Eosinophil % 0.6 % 0-6 Basophil % 0.5 % 0-2 Nucleated Red Blood Cells % 0.1 Comp Metabolic Panel 04/14/2017 Sodium 138 mmol/L 133-145 Potassium 3.8 mmol/L 3.5-5.0 Chloride 102 mmol/L 101-111 Co2 Carbon Dioxide 29 mmol/L 22-32 Anion Gap 7 mmol/L 2-11 Glucose 89 mg/dL 70-100 Blood Urea Nitrogen 8 mg/dL 6-24 Creatinine 0.60 mg/dL 0.51-0.95 BUN/Creatinine Ratio 13.3 8-20 Calcium 9.6 mg/dL 8.6-10.3 Total Protein 7.0 g/dL 6.4-8.9 Albumin 4.4 g/dL 3.2-5.2 Globulin 2.6 g/dL 2-4 Albumin/Globulin Ratio 1.7 1-3 Total Bilirubin 0.30 mg/dL 0.2-1.0 Alkaline Phosphatase 97 U/L 34-104 Alt 21 U/L 7-52 Ast 24 U/L 13-39 Egfr Non- 115.1 >60 Egfr 148.1 >60 3 Laboratory test finding 03/29/2017 Acetaminophen < 15 g/mL 4 Alcohol < 10 mg/dL <10 Salicylate < 2.50 mg/dL <30 TSH (Thyroid Stimulating Horm) 0.52 mcIU/mL 0.34-5.60 Comp Metabolic Panel 03/29/2017 Sodium 137 mmol/L 133-145 Potassium 3.5 mmol/L 3.5-5.0 Chloride 106 mmol/L 101-111 Co2 Carbon Dioxide 22 mmol/L 22-32 Anion Gap 9 mmol/L 2-11 Glucose 140 mg/dL High 70-100 Blood Urea Nitrogen 10 mg/dL 6-24 Creatinine 0.62 mg/dL 0.51-0.95 BUN/Creatinine Ratio 16.1 8-20 Calcium 9.6 mg/dL 8.6-10.3 Total Protein 7.5 g/dL 6.4-8.9 Albumin 4.6 g/dL 3.2-5.2 Globulin 2.9 g/dL 2-4 Albumin/Globulin Ratio 1.6 1-3 Total Bilirubin 0.30 mg/dL 0.2-1.0 Alkaline Phosphatase 84 U/L 34-104 Alt 12 U/L 7-52 Ast 17 U/L 13-39 Egfr Non- 110.9 >60 Egfr 142.6 >60 5 Urinalysis Profile 03/29/2017 Urine Color Yellow Urine Appearance Clear Urine Specific [place] 1.013 1.010-1.030 Urine pH 6.0 5-9 Urine Urobilinogen Negative Negative Urine Ketones Negative Negative Urine Protein Negative Negative Urine Leukocytes Negative Negative Urine Blood Negative Negative Urine Nitrite Negative Negative Urine Bilirubin Negative Negative Urine Glucose Negative Negative Urine Drug SCR ED 03/29/2017 Amphetamine Ur Screen None Detected None Detect & [facility] Barbiturates Urine Screen None Detected None Detect Benzodiazepine Urine Screen None Detected None Detect Urine Cannabinoids Screen None Detected None Detect Urine Cocaine Screen None Detected None Detect Urine Opiates Screen Presumptive Posi <SEE NOTE> None Detect 6 Urine Phencyclidine Screen None Detected None Detect 7 CBC Auto Diff 03/29/2017 White Blood Count 16.6 10^3/uL High 3.5-10.8 Red Blood Count 4.12 10^6/uL 4.0-5.4 Hemoglobin 14.4 g/dL 12.0-16.0 Hematocrit 43 % 35-47 Mean Corpuscular Volume 104 fL High 80-97 Mean Corpuscular Hemoglobin 35 pg High 27-31 Mean Corpuscular HGB Conc 34 g/dL 31-36 Red Cell Distribution Width 13 % 10.5-15 Platelet Count 284 10^3/uL 150-450 Mean Platelet Volume 10 um3 7.4-10.4 Abs Neutrophils 11.8 10^3/uL High 1.5-7.7 Abs Lymphocytes 3.7 10^3/uL 1.0-4.8 Abs Monocytes 0.9 10^3/uL High 0-0.8 Abs Eosinophils 0.1 10^3/uL 0-0.6 Abs Basophils 0.1 10^3/uL 0-0.2 Abs Nucleated RBC 0 10^3/uL Granulocyte % 71.0 % 38-83 Lymphocyte % 22.4 % Low 25-47 Monocyte % 5.6 % 1-9 Eosinophil % 0.3 % 0-6 Basophil % 0.7 % 0-2 Nucleated Red Blood Cells % 0 Laboratory test finding 06/18/2015 Beta HCG Quantitative 548.27 mIU/mL Comp Metabolic Panel 06/18/2015 Sodium 137 mmol/L 133-145 Potassium 3.1 mmol/L Low 3.5-5.0 Chloride 105 mmol/L 101-111 Co2 Carbon Dioxide 26 mmol/L 22-32 Anion Gap 6 mmol/L 2-11 Glucose 81 mg/dL 70-100 Blood Urea Nitrogen 5 mg/dL Low 6-24 Creatinine 0.62 mg/dL 0.51-0.95 BUN/Creatinine Ratio 8.1 8-20 Calcium 9.0 mg/dL 8.6-10.3 Total Protein 6.7 g/dL 6.4-8.9 Albumin 4.0 g/dL 3.2-5.2 Globulin 2.7 g/dL 2-4 Albumin/Globulin Ratio 1.5 1-3 Total Bilirubin 0.30 mg/dL 0.2-1.0 Alkaline Phosphatase 66 U/L 34-104 Alt 11 U/L 7-52 Ast 18 U/L 13-39 Egfr Non- 112.3 >60 Egfr 144.4 >60 8 Inr/Protime 06/18/2015 Inr 1.04 0.78-1.07 CBC Auto Diff 06/18/2015 White Blood Count 13.8 10^3/uL High 4.8-10.8 Red Blood Count 3.94 10^6/uL Low 4.0-5.4 Hemoglobin 12.9 g/dL 12.0-16.0 Hematocrit 40 % 35-47 Mean Corpuscular Volume 101 fL High 80-97 Mean Corpuscular Hemoglobin 33 pg High 27-31 Mean Corpuscular HGB Conc 32 g/dL 31-36 Red Cell Distribution Width 13 % 10.5-15 Platelet Count 268 10^3/uL 150-450 Mean Platelet Volume 11 um3 High 7.4-10.4 Abs Neutrophils 9.5 10^3/uL High 1.5-7.7 Abs Lymphocytes 3.2 10^3/uL 1.0-4.8 Abs Monocytes 0.9 10^3/uL High 0-0.8 Abs Eosinophils 0.1 10^3/uL 0-0.6 Abs Basophils 0.1 10^3/uL 0-0.2 Abs Nucleated RBC 0.01 10^3/uL Granulocyte % 68.5 % 38-83 Lymphocyte % 22.9 % Low 25-47 Monocyte % 6.7 % 1-9 Eosinophil % 1.0 % 0-6 Basophil % 0.9 % 0-2 Nucleated Red Blood Cells % 0 Laboratory test 06/15/2015 Beta HCG Quantitative 134.26 mIU/mL 9, 10 finding Laboratory test 06/14/2015 Gardnerella/Yeast: SEE RESULT BELOW 11, 12 finding Vaginal Dna GC/Chlamydia 06/14/2015 Chlamydia trachomatis Negative Negative 11 Amplified Rna Rna Neisseria gonorrhoeae (GC) Rna Negative Negative 11, 13 Laboratory test 06/14/2015 Trichomonas Negative Negative 11, 14 finding vaginalis Rna CBC Auto Diff 06/14/2015 White Blood Count 15.1 10^3/uL High 4.8-10.8 Red Blood Count 3.91 10^6/uL Low 4.0-5.4 Hemoglobin 13.0 g/dL 12.0-16.0 Hematocrit 39 % 35-47 Mean Corpuscular Volume 101 fL High 80-97 Mean Corpuscular Hemoglobin 33 pg High 27-31 Mean Corpuscular HGB Conc 33 g/dL 31-36 Red Cell Distribution Width 13 % 10.5-15 Platelet Count 241 10^3/uL 150-450 Mean Platelet Volume 11 um3 High 7.4-10.4 Abs Neutrophils 11.1 10^3/uL High 1.5-7.7 Abs Lymphocytes 2.9 10^3/uL 1.0-4.8 Abs Monocytes 0.8 10^3/uL 0-0.8 Abs Eosinophils 0.1 10^3/uL 0-0.6 Abs Basophils 0.1 10^3/uL 0-0.2 Abs Nucleated RBC 0 10^3/uL Granulocyte % 73.9 % 38-83 Lymphocyte % 19.2 % Low 25-47 Monocyte % 5.6 % 1-9 Eosinophil % 0.7 % 0-6 Basophil % 0.6 % 0-2 Nucleated Red Blood Cells % 0 Laboratory test finding 06/14/2015 Beta HCG Quantitative 95.41 mIU/mL Comp Metabolic Panel 06/14/2015 Sodium 134 mmol/L 133-145 Potassium 3.1 mmol/L Low 3.5-5.0 Chloride 105 mmol/L 101-111 Co2 Carbon Dioxide 22 mmol/L 22-32 Anion Gap 7 mmol/L 2-11 Glucose 90 mg/dL 70-100 Blood Urea Nitrogen 5 mg/dL Low 6-24 Creatinine 0.60 mg/dL 0.51-0.95 BUN/Creatinine Ratio 8.3 8-20 Calcium 9.0 mg/dL 8.6-10.3 Total Protein 7.0 g/dL 6.4-8.9 Albumin 4.1 g/dL 3.2-5.2 Globulin 2.9 g/dL 2-4 Albumin/Globulin Ratio 1.4 1-3 Total Bilirubin 0.40 mg/dL 0.2-1.0 Alkaline Phosphatase 74 U/L 34-104 Alt 10 U/L 7-52 Ast 16 U/L 13-39 Egfr Non- 116.6 >60 Egfr 150.0 >60 15 Flu Test A, B, Or A & B,Binaxn 02/18/2015 Influenza A Antigen neg Influenza B Antigen neg Flu Test A, B, Or A & B,Binaxn 02/18/2015 Influenza A Antigen NEG Influenza B Antigen NEG Laboratory test finding 02/18/2015 Strep Screen neg Neg Urine Culture And 10/15/2014 Urine Culture (SEE NOTE) 16 Sensitivities Urine DIP 10/15/2014 Specific [place] 1.010 1.01-1.02 Urine pH 7 High 5-6 Leukocytes NEG Neg Urine Nitrites POS Neg Total Protein, Urine NEG Neg Urine Glucose NORM Norm Urine Ketones NEG Neg Urobilinogen NORM Norm Urine Bilirubin NEG Neg Urine Blood TRACE Neg Laboratory test 08/05/2014 HCG DIP Test neg Neg finding Laboratory test 03/14/2014 TSH (Thyroid 1.66 IU/mL 0.34-5.60 finding Stimulating Horm) CBC Auto Diff 03/14/2014 White Blood Count 12.0 10^3/uL High 4.8-10.8 Red Blood Count 4.02 10^6/uL 4.0-5.4 Hemoglobin 12.6 g/dL 12.0-16.0 Hematocrit 39 % 35-47 Mean Corpuscular Volume 96 fL 80-97 Mean Corpuscular Hemoglobin 31 pg 27-31 Mean Corpuscular HGB Conc 33 g/dL 31-36 Red Cell Distribution Width 15 % 10.5-15 Platelet Count 273 10^3/uL 150-450 Mean Platelet Volume 10 um3 7.4-10.4 Abs Neutrophils 7.6 10^3/uL 1.5-7.7 Abs Lymphocytes 3.5 10^3/uL 1.0-4.8 Abs Monocytes 0.7 10^3/uL 0-0.8 Abs Eosinophils 0.2 10^3/uL 0-0.6 Abs Basophils 0.1 10^3/uL 0-0.2 Abs Nucleated RBC 0 10^3/uL Granulocyte % 63.0 % 38-83 Lymphocyte % 29.0 % 25-47 Monocyte % 6.2 % 1-9 Eosinophil % 1.4 % 0-6 Basophil % 0.4 % 0-2 Nucleated Red Blood Cells % 0 Comp Metabolic Panel 03/14/2014 Sodium 136 mmol/L 133-145 Potassium 3.7 mmol/L 3.7-5.6 Chloride 101 mmol/L 101-111 Co2 Carbon Dioxide 28 mmol/L 22-32 Anion Gap 7 mmol/L 2-11 Glucose 80 mg/dL 70-100 Blood Urea Nitrogen 7 mg/dL 6-24 Creatinine 0.68 mg/dL 0.51-0.95 BUN/Creatinine Ratio 10.3 8-20 Calcium 9.5 mg/dL 8.6-10.3 Total Protein 7.4 g/dL 6.4-8.9 Albumin 4.5 g/dL 3.2-5.2 Globulin 2.9 g/dL 2-4 Albumin/Globulin Ratio 1.6 1-3 Total Bilirubin 0.30 mg/dL 0.2-1.0 Alkaline Phosphatase 85 U/L 34-104 Alt 10 U/L 7-52 Ast 17 U/L 13-39 Egfr Non- 101.6 >60 Egfr 130.7 >60 17 Iron & Iron Binding Capacity 03/14/2014 Iron 76 g/dL 50-212 Unsaturated Iron Binding 421 g/dL Total Iron Binding Capacity 497 g/dL High 250-450 % Iron Saturation 15 % 15-55 Laboratory test finding 03/14/2014 Vitamin B12 374 pg/mL 180-914 18 Ferritin < 10.0 ng/mL Low 11-307 Laboratory test finding 02/06/2014 HCG DIP Test neg Neg CBC With Manual Diff 08/26/2013 White Blood Count 13.3 10^3/uL High 4.8- 10.8 Red Blood Count 4.10 10^6/uL 4.0-5.4 Hemoglobin 13.4 g/dL 12.0-16.0 Hematocrit 41 % 35-47 Mean Corpuscular Volume 99 fL High 80-97 Mean Corpuscular Hemoglobin 33 pg High 27-31 Mean Corpuscular HGB Conc 33 g/dL 31-36 Red Cell Distribution Width 13 % 10.5-15 Platelet Count 293 10^3/uL 150-450 Mean Platelet Volume 11 um3 High 7.4-10.4 Abs Neutrophils 10.1 10^3/uL High 1.5-7.7 Abs Lymphocytes 2.5 10^3/uL 1.0-4.8 Abs Monocytes 0.6 10^3/uL 0-0.8 Abs Eosinophils 0.1 10^3/uL 0-0.6 Abs Basophils 0.1 10^3/uL 0-0.2 Abs Nucleated RBC 0.02 10^3/uL Neutrophil % 70 % 38-83 Lymphocytes % 22 % Low 25-47 Monocytes % 5 % 0-13 Eosinophils % 2 % 0-6 Reactive Lymph % 1 % 0-6 RBC Morphology Normal Normal Laboratory test finding 08/26/2013 Erythrocyte Sed Rate 20 mm/Hr High 0- 14 CRP High Sensitivity 36.1 mg/L 19 Lyme Western Blot 08/26/2013 Lyme Disease IgG Ab WB Negative Negative Lyme Disease IgG Bands Present No bands detecte <SEE NOTE> kDa 20 Lyme Disease IgM Ab WB Negative Negative Lyme Disease IgM Bands Present No bands detecte <SEE NOTE> kDa 21 Lyme Disease Interpretation See Comment 22 CBC Auto Diff 06/02/2013 White Blood Count 12.8 10^3/uL High 4.8-10.8 Red Blood Count 3.80 10^6/uL Low 4.0-5.4 Hemoglobin 13.0 g/dL 12.0-16.0 Hematocrit 38 % 35-47 Mean Corpuscular Volume 101 fL High 80-97 Mean Corpuscular Hemoglobin 34 pg High 27-31 Mean Corpuscular HGB Conc 34 g/dL 31-36 Red Cell Distribution Width 13 % 10.5-15 Platelet Count 224 10^3/uL 150-450 Mean Platelet Volume 10 um3 7.4-10.4 Abs Neutrophils 7.3 10^3/uL 1.5-7.7 Abs Lymphocytes 4.4 10^3/uL 1.0-4.8 Abs Monocytes 0.9 10^3/uL High 0-0.8 Abs Eosinophils 0.1 10^3/uL 0-0.6 Abs Basophils 0.1 10^3/uL 0-0.2 Abs Nucleated RBC 0.01 10^3/uL Granulocyte % 56.8 % 38-83 Lymphocyte % 34.1 % 25-47 Monocyte % 7.1 % 1-9 Eosinophil % 1.1 % 0-6 Basophil % 0.9 % 0-2 Nucleated Red Blood Cells % 0 Comp Metabolic Panel 06/02/2013 Sodium 139 mmol/L 133-145 Potassium 3.3 mmol/L Low 3.5-5.0 Chloride 104 mmol/L 101-111 Co2 Carbon Dioxide 29.0 mmol/L 22-32 Anion Gap 6.0 mmol/L 2-11 Glucose 91 mg/dL 70-100 Blood Urea Nitrogen 7 mg/dL 6-24 Creatinine 0.60 mg/dL 0.50-1.40 BUN/Creatinine Ratio 11.7 8-20 Calcium 9.4 mg/dL 8.1-9.9 Total Protein 6.4 g/dL 6.2-8.1 Albumin 3.7 g/dL 3.6-5.4 Globulin 2.7 g/dL 2-4 Albumin/Globulin Ratio 1.4 1-3 Total Bilirubin 0.5 mg/dL 0.4-1.5 Alkaline Phosphatase 80 U/L 30-110 Alt 64 U/L High 14-54 Ast 64 U/L High 12-42 Egfr Non- 118.2 >60 Egfr 152.0 >60 23 Laboratory test finding 06/02/2013 Lipase 24 U/L 22-51 C Reactive Protein < 0.5 mg/dL Less than 0.5 Urinalysis 06/02/2013 Urine Color Yellow Urine Appearance Clear Urine Specific [place] 1.006 Low 1.010-1.030 Urine Esterase Negative Negative Urine Nitrate Negative Negative Urine Urobilinogen Negative E.U./dL Negative Urine Protein Negative mg/dL Negative Urine pH 7.0 5-9 Urine Blood Negative Negative Urine Ketones Negative mg/dL Negative Urine Bilirubin Negative Negative Urine Glucose Negative mg/dL Negative Laboratory test finding 04/10/2013 HCG DIP Test neg Neg Affirm Vaginal Dna Probe 07/21/2012 Affirm Vaginal Dna (SEE NOTE) 24 Probe GC/Chlamydia Amplified Rna 07/21/2012 GC/Chlamydia Rna (SEE NOTE) 25 Stool For Blood 07/21/2012 Stool Occult Blood (SEE NOTE) 26 CBC Auto Diff 07/21/2012 White Blood Count 8.8 10^3/uL 4.8-10.8 Red Blood Count 3.58 10^6/uL Low 4.0-5.4 Hemoglobin 11.3 g/dL Low 12.0-16.0 Hematocrit 35 % 35-47 Mean Corpuscular Volume 97 fL 80-97 Mean Corpuscular Hemoglobin 32 pg High 27-31 Mean Corpuscular HGB Conc 33 g/dL 31-36 Red Cell Distribution Width 13 % 10.5-15 Platelet Count 243 10^3/uL 150-450 Mean Platelet Volume 10 um3 7.4-10.4 Abs Neutrophils 4.4 10^3/uL 1.5-7.7 Abs Lymphocytes 3.6 10^3/uL 1.0-4.8 Abs Monocytes 0.6 10^3/uL 0-0.8 Abs Eosinophils 0.1 10^3/uL 0-0.6 Abs Basophils 0.1 10^3/uL 0-0.2 Abs Nucleated RBC 0 10^3/uL Granulocyte % 50.2 % 38-83 Lymphocyte % 40.6 % 25-47 Monocyte % 6.9 % 1-9 Eosinophil % 1.3 % 0-6 Basophil % 1.0 % 0-2 Nucleated Red Blood Cells % 0 Comp Metabolic Panel 07/21/2012 Sodium 136 mmol/L 133-145 Potassium 3.9 mmol/L 3.5-5.0 Chloride 108 mmol/L 101-111 Co2 Carbon Dioxide 25.0 mmol/L 22-32 Anion Gap 3.0 mmol/L 2-11 Glucose 76 mg/dL 70-100 Blood Urea Nitrogen 7 mg/dL 6-24 Creatinine 0.50 mg/dL 0.50-1.40 BUN/Creatinine Ratio 14.0 8-20 Calcium 8.5 mg/dL 8.1-9.9 Total Protein 5.9 GM/DL Low 6.2-8.1 Albumin 3.3 GM/DL Low 3.6-5.4 Globulin 2.6 GM/DL 2-4 Albumin/Globulin Ratio 1.3 1-3 Total Bilirubin 0.3 mg/dL 0.1-1.0 27 Alkaline Phosphatase 57 U/L 30-110 Alt 16 U/L 14-54 Ast 21 U/L 12-42 Egfr Non- 146.9 >60 Egfr 188.9 >60 28 Laboratory test finding 07/21/2012 Lactic Acid 0.8 mmol/L 0.5-1.6 Urinalysis 07/21/2012 Urine Color Yellow Urine Appearance Clear Urine Specific [place] 1.011 1.010-1.030 Urine Esterase Negative Negative Urine Nitrate Negative Negative Urine Urobilinogen Negative Negative Urine Protein Negative Negative Urine pH 7.0 5-9 Urine Blood Negative Negative Urine Ketones Negative Negative Urine Bilirubin Negative Negative Urine Glucose Negative Negative Laboratory test finding 07/21/2012 Urine Negative Negative 29 Comp Metabolic Panel 07/16/2012 Sodium 138 mmol/L 133-145 Potassium 4.1 mmol/L 3.5-5.0 Chloride 109 mmol/L 101-111 Co2 Carbon Dioxide 23.0 mmol/L 22-32 Anion Gap 6.0 mmol/L 2-11 Glucose 76 mg/dL 70-100 Blood Urea Nitrogen 5 mg/dL Low 6-24 Creatinine 0.60 mg/dL 0.50-1.40 BUN/Creatinine Ratio 8.3 8-20 Calcium 9.3 mg/dL 8.1-9.9 Total Protein 6.2 GM/DL 6.2-8.1 Albumin 3.4 GM/DL Low 3.6-5.4 Globulin 2.8 GM/DL 2-4 Albumin/Globulin Ratio 1.2 1-3 Total Bilirubin 0.4 mg/dL 0.1-1.0 30 Alkaline Phosphatase 66 U/L 30-110 Alt 15 U/L 14-54 Ast 18 U/L 12-42 Egfr Non- 119.0 >60 Egfr 153.1 >60 31 Laboratory test finding 07/16/2012 Amylase 49 U/L 20-120 Lipase 22 U/L 22-51 Laboratory test finding 07/16/2012 C. difficile Amplified Dna (SEE NOTE) 32 Stool For Blood 07/16/2012 Stool Occult Blood (SEE NOTE) 33 Laboratory test finding 07/16/2012 E.coli O157:H7 Culture (SEE NOTE) 34 O P: Giardia/Cryptospor Screen (SEE NOTE) 35 Fecal Lactoferrin (Stool WBC) (SEE NOTE) 36 Stool Culture (SEE NOTE) 37 Urine Culture And Sensitivities 07/16/2012 Urine Culture (SEE NOTE) 38 Urine DIP 07/16/2012 Leukocytes POS + Neg Urine Nitrites NEG Neg Urine pH 5 5-6 Total Protein, Urine TRACE Neg Urine Glucose NORM Norm Urine Ketones NEG Neg Urobilinogen NORM Norm Urine Bilirubin NEG Neg Urine Blood TRACE Neg Specific [place] NA Low 1.01-1.02 Stool Panel ([facility] [place]) 02/20/2012 Stool Culture <SEE 39 NOTE> Stool For Blood 02/20/2012 Stool For Blood NEGATIVE Negative Stool Color BROWN Stool Form NONFORMED Stool Consistency PASTY CBC With Manual Diff 01/25/2012 White Blood Count 8.5 CUMM 4.8-10.8 Red Cell Count 3.66 CUMM Low 4.2-5.4 Hemoglobin 12.1 g/dL 12.0-16.0 Hematocrit 35 % 35-47 Mean Corpuscular Volume 96 um3 79-97 Mean Corpuscular Hemoglob 33 pg High 27-31 Mean Corpuscular HGB Cone 34 g/dL 32-36 Redcell Distribution WDTH 13 % 10.5-15 Platelet Count 257 CUMM 150-450 Mean Platelet Volume 11.4 um3 High 7.4-10.4 Polysegmented Neutrophil 60 % 38-83 Band Neutrophil 1 % 0-8 Lymphocyte 27 % 25-47 Monocyte 7 % 0-13 Eosinophil 5 % 0-6 Absolute Neutrophil Count 5.10 RBC Morphology NORMAL Comp Metabolic Panel 01/25/2012 Sodium 135 mmol/L 135-145 Potassium 3.9 mmol/L 3.5-5.0 Chloride 106 mmol/L 101-111 Co2 (Carbon Dioxide) 24.0 mmol/L 22-32 Anion Gap 5.0 mmol/L 2-11 40 Glucose 96 mg/dL 70-100 BUN 6 mg/dL 6-24 Creatinine 0.6 mg/dL 0.50-1.40 One Over Creatinine 1.66 BUN/Creatinine Ratio 10.0 8-20 Calcium 8.9 mg/dL 8.1-9.9 Total Protein 6.3 GM/DL 6.2-8.1 Albumin 3.5 GM/DL Low 3.6-5.4 Globulin 2.8 GM/DL 2-4 Albumin/Globulin Ratio 1.3 1-3 Bilirubin Total 0.4 mg/dL 0.4-1.5 41 Alkaline Phosphatase 74 U/L 30-110 Alt (SGPT) 15 U/L 14-54 Ast (Sgot) 21 U/L 12-42 eGFR Non- 119.0 > 60 eGFR 153.1 > 60 42 Laboratory test finding 01/25/2012 Lipase 28 U/L 22-51 Laboratory test finding 12/03/2010 Flu Test A&B, Quickvue NEG Comp Metabolic Panel 10/17/2010 Sodium 138 mmol/L 135-145 Potassium 3.1 mmol/L Low 3.5-5.0 Chloride 100 mmol/L Low 101-111 Co2 (Carbon Dioxide) 26.0 mmol/L 22-32 Anion Gap 12.0 mmol/L High 2-11 43 Glucose 99 mg/dL 70-100 BUN 6 mg/dL 6-24 Creatinine 0.60 mg/dL 0.50-1.40 One Over Creatinine 1.60 BUN/Creatinine Ratio 10.0 8-20 Calcium 8.6 mg/dL 8.1-9.9 Total Protein 6.9 GM/DL 6.2-8.1 Albumin 3.8 GM/DL 3.6-5.4 Globulin 3.1 GM/DL 2-4 Albumin/Globulin Ratio 1.2 1-3 Bilirubin Total 0.6 mg/dL 0.4-1.5 44 Alkaline Phosphatase 83 U/L 30-110 Alt (SGPT) 13 U/L Low 14-54 Ast (Sgot) 17 U/L 12-42 eGFR Non- 128.4 > 60 eGFR 155.4 > 60 45 Laboratory test finding 10/17/2010 C Reactive Protein 1.9 mg/dL High Less Than 0.5 CBC With Electronic Diff 10/17/2010 White Blood Count 13.8 CUMM High 4.8- 10.8 Red Cell Count 4.17 CUMM Low 4.2-5.4 Hemoglobin 13.6 g/dL 12.0-16.0 Hematocrit 41 % 35-47 Mean Corpuscular Volume 97 um3 79-97 Mean Corpuscular Hemoglob 33 pg High 27-31 Mean Corpuscular HGB Cone 34 g/dL 32-36 Redcell Distribution WDTH 15 % 10.5-15 Platelet Count 222 CUMM 150-450 Mean Platelet Volume 9.7 um3 7.4-10.4 46 Manual Differential 10/17/2010 Polysegmented Neutrophil 69 % 38-83 Band Neutrophil 1 % 0-8 Lymphocyte 22 % Low 25-47 Monocyte 3 % 0-13 Eosinophil 1 % 0-6 Atypical Lymph 4 % 0-6 Absolute Neutrophil Count 9.6 Anisocytosis SLIGHT HCG Qualitative Stat 08/06/2007 Serum Qual HCG NEGATIVE Negative 47 CBC With Electronic Diff Stat 08/06/2007 White Blood Count 13.3 CUMM High 4.8-10.8 Abs Basophils 0 0-0.2 Abs Eosinophils 0.1 0-0.6 Absolute Neutrophil Count 9.2 High 1.5-7.7 Abs Lymphs 3.1 1.0-4.8 Abs Mononuclear 0.8 0-0.8 Basophil % 0.3 % 0-2 Hematocrit 40 % 35-47 Hemoglobin 13.8 g/dL 12.0-16.0 Eosinophil % 1.1 % 0-6 Gran % 69.5 % 38-83 Lymph % 23.0 % 20-45 Mean Corpuscular HGB Cone 34 g/dL 32-36 Mean Corpuscular Hemoglob 36 pg High 27-31 Mean Corpuscular Volume 103 um3 High 79-97 Mean Platelet Volume 10.3 um3 7.4-10.4 Mononuclear % 6.1 % 1-9 Platelet Count 242 CUMM 150-450 Red Cell Count 3.87 CUMM Low 4.2-5.4 Redcell Distribution WDTH 12 % 10.5-15 CMP Stat 08/06/2007 One Over Creatinine 1.42 Anion Gap 9.0 mmol/L 2-11 48 Albumin/Globulin Ratio 1.4 1-3 Albumin 3.8 GM/DL 3.6-5.4 Alkaline Phosphatase 59 U/L 30-110 Alt (SGPT) 17 U/L 14-54 Ast (Sgot) 21 U/L 12-42 BUN 12 mg/dL 6-24 Calcium 9.1 mg/dL 8.7-10.2 Chloride 108 mmol/L 101-111 Co2 (Carbon Dioxide) 20.0 mmol/L Low 22-32 Globulin 2.8 GM/DL 2-4 Glucose 87 mg/dL 70-105 Potassium 3.9 mmol/L 3.5-5.0 Sodium 137 mmol/L 135-145 Bilirubin Total 0.3 mg/dL Low 0.4-1.5 Total Protein 6.6 GM/DL 6.2-8.1 BUN/Creatinine Ratio 17.1 8-20 Creatinine 0.7 mg/dL 0.5-1.4 Laboratory test finding 08/06/2007 Amylase 62 U/L 30-125 Lipase 18 U/L Low 22-51 Urinalysis W/Microscopic 08/06/2007 Ua Color YELLOW Appearance-Urine CLEAR Bacteria-Urine TRACE Bilirubin-Ur NEGATIVE Negative Blood-Urine NEGATIVE Negative Epith Cells-Ur MODERATE Esterase-Urine NEGATIVE Negative Glucose-Urine NEGATIVE Negative Ketones-Urine NEGATIVE Negative Nitrite NEGATIVE Negative PH-Urine 6.5 5-9 Protein-Urine NEGATIVE Negative RBC-Urine 0-2 0-2 [id number] NEGATIVE Negative Specific [place]-Ur 1.008 Low 1.010-1.030 WBC-Urine 0-2 0-5 Laboratory test finding 11/01/2006 TSH 3.96 MIU/ML 0.34-5.60 Liver Function Panel 11/01/2006 Albumin/Globulin Ratio 1.7 1-3 Albumin 4.5 GM/DL 3.6-5.4 Alkaline Phosphatase 65 U/L 30-110 Alt (SGPT) 16 U/L 14-54 Ast (Sgot) 25 U/L 12-42 Bilirubin Direct 0.1 mg/dL 0.1-0.5 Globulin 2.7 GM/DL 2-4 Indirect Bilirubin 0.4 mg/dL 0.1-0.75 Bilirubin Total 0.5 mg/dL 0.4-1.5 Total Protein 7.2 GM/DL 6.2-8.1 CBC With Manual Diff 11/01/2006 RBC Morphology NORMAL White Blood Count 15.5 CUMM High 4.8-10.8 Absolute Neutrophil Count 8.8 Atypical Lymph 1 % 0-6 Hematocrit 44 % 35-47 Hemoglobin 15.2 g/dL 12.0-16.0 Lymphocyte 35 % 5-47 Mean Corpuscular HGB Cone 35 g/dL 32-36 Mean Corpuscular Hemoglob 35 pg High 27-31 Mean Corpuscular Volume 102 um3 High 79-97 Monocyte 7 % 0-13 Mean Platelet Volume 11.1 um3 High 7.4-10.4 Platelet Count 279 CUMM 150-450 Polysegmented Neutrophil 57 % 38-83 Red Cell Count 4.30 CUMM 4.2-5.4 Redcell Distribution WDTH 12 % 10.5-15 Lipid Profile 11/01/2006 Cholesterol/HDL Ratio 3.19 AVERAGE 1-4.44 (Trig/Chol/HDL) Cholesterol 153 mg/dL Less Than 200 49 Triglyceride 82 mg/dL 40-200 High Density Lipoprotein 48 mg/dL 40-60 Low Density Lipoprotein 89 mg/dL Less Than 100 50 Laboratory test finding 11/01/2006 Vitamin B12 431 pg/mL 180-914 1 Procedure Result Units Ref Interval Amphetamines, S/P, screen Positive ng/mL Cutoff 30 If the screen is positive, then confirmation by mass spectrometry will be added. Additional charges will apply. Unconfirmed positive may be useful for medical purposes, but does not meet forensic standards. Methamphetamine, S/P, screen Negative ng/mL Cutoff 30 Barbiturates, S/P, screen Negative ng/mL Cutoff 75 Benzodiazepines, S/P, screen Negative ng/mL Cutoff 75 Buprenorphine, S/P, screen Negative ng/mL Cutoff 1 Cannabinoids, S/P, screen Negative ng/mL Cutoff 30 Cocaine, S/P, Screen Negative ng/mL Cutoff 30 Methadone, S/P, screen Negative ng/mL Cutoff 40 Opiates, S/P, screen Negative ng/mL Cutoff 30 Oxycodone, S/P, screen Negative ng/mL Cutoff 30 Phencyclidine, S/P, Screen Negative ng/mL Cutoff 15 Drug Screen Comments, Serum or Plasma See Note Drug Screen Comments, Serum or Plasma: INTERPRETIVE INFORMATION: Drug Screen 9 Panel, Serum or Plasma - Immunoassay Screen with Reflex to Mass Spectrometry Confirmation/Quantitation 1. Methodology: Qualitative Immunoassay Screen 2. Drugs/Drug classes reported as "Positive" are automatically reflexed to mass spectrometry confirmation/quantitation testing. An immuncassay unconfirmed positive screen result may be useful for medical purposes but does not meet forensic standards. 3. The absence of expected drug(s) and/or drug metabolite(s) may indicate non-compliance, inappropriate timing of specimen collection relative to drug administration, poor drug absorption, or limitations of testing. The concentration at which the screening test can detect a drug or metabolite varies within a drug class. Specimens for which drugs or drug classes are detected by the screen are automatically reflexed to a second, more specific technology (mass spectrometry). The concentration value must be greater than or equal to the cutoff to be reported as positive. Interpretive questions should be directed to the laboratory. 4. For medical purposes only; not valid for forensic use. Test developed and characteristics determined by [facility]. See Compliance Statement B: [employer] [facility]/[employer] Procedure Result Units Ref Interval AMPHETAMINES, Serum or Plasma, Quantitative Amphetamine, S/P, Quant 169 ng/mL Consistent with use of a drug containing amphetamine. May also reflect metabolism of methamphetamine, when methamphetamine is present. Amphetamine and methamphetamine exist in d- and l-isomeric forms. These forms are not distinguished by this test. Isomeric separation is available separately for an additional charge. INTERPRETIVE INFORMATION: Amphetamines, Serum or Plasma, Quantitative Methodology: Quantitative Liquid Chromatography-Tandem Mass Spectrometry Positive cutoff: 20 ng/mL For medical purposes only; not valid for forensic use. The absence of expected drug(s) and/or drug metabolite(s) may indicate non-compliance, inappropriate timing of specimen collection relative to drug administration, poor drug absorption, or limitations of testing. The concentration value must be greater than or equal to the cutoff to be reported as positive. Interpretive questions should be directed to the laboratory. Test developed and characteristics determined by [facility]. See Compliance Statement B: [employer] [facility]/ Methamphetamine, S/P, Quant <20 ng/mL MDA, S/P, Quant <20 ng/mL MDMA, S/P, Quant <20 ng/mL MDEA, S/P, Quant <20 ng/mL Test Performed by: [place] [address] [email or web address] Roni Germain MD - Director of Laboratories --- 04/24/17 1019 --- Ref Lab Test previously reported as: See Comment Test Result Flag Unit RefValue DRUG ABUSE SCREEN 9 See Comment Testing is complete. Final report has been sent to the referring laboratory. Test Performed by: [email or web address] [address] [place] [address] 2 Adult MCV greater than 105 fl incubated 1/2 hr at 37c without significant change. 3 Because ethnic data is not always readily available, this report includes an eGFR for both -Americans and non- Americans. The National Kidney Disease Education Program (NKDEP) does not endorse the use of the MDRD equation for patients that are not between the ages of 18 and 70, are , have extremes of body size, muscle mass, or nutritional status, or are non- or non-. According to the National Kidney Foundation, irrespective of diagnosis, the stage of the disease is based on the level of kidney function: Stage Description GFR(mL/min/1.73 m(2)) 1 Kidney damage with normal or decreased GFR 90 2 Kidney damage with mild decrease in GFR 60-89 3 Moderate decrease in GFR 30-59 4 Severe decrease in GFR 15-29 5 Kidney failure <15 (or dialysis) 4 Therapeutic concentration: <50 ug/mL Toxic concentration: >120 ug/mL 5 Because ethnic data is not always readily available, this report includes an eGFR for both -Americans and non- Americans. The National Kidney Disease Education Program (NKDEP) does not endorse the use of the MDRD equation for patients that are not between the ages of 18 and 70, are , have extremes of body size, muscle mass, or nutritional status, or are non- or non-. According to the National Kidney Foundation, irrespective of diagnosis, the stage of the disease is based on the level of kidney function: Stage Description GFR(mL/min/1.73 m(2)) 1 Kidney damage with normal or decreased GFR 90 2 Kidney damage with mild decrease in GFR 60-89 3 Moderate decrease in GFR 30-59 4 Severe decrease in GFR 15-29 5 Kidney failure <15 (or dialysis) 6 Presumptive Positive Presumptive positive results are unconfirmed. 7 The urine specimen was tested at the listed cutoffs: Drug class test level (ng/mL) Amphetamines 500 Barbiturates 200 Benzodiazepine metabolites 200 Cocaine metabolites 150 Cannabinoids 50 Opiates 300 Pcp 25 Specimen was received without chain of custody. Results should be used for medical purposes only. 8 Because ethnic data is not always readily available, this report includes an eGFR for both -Americans and non- Americans. The National Kidney Disease Education Program (NKDEP) does not endorse the use of the MDRD equation for patients that are not between the ages of 18 and 70, are , have extremes of body size, muscle mass, or nutritional status, or are non- or non-. According to the National Kidney Foundation, irrespective of diagnosis, the stage of the disease is based on the level of kidney function: Stage Description GFR(mL/min/1.73 m(2)) 1 Kidney damage with normal or decreased GFR 90 2 Kidney damage with mild decrease in GFR 60-89 3 Moderate decrease in GFR 30-59 4 Severe decrease in GFR 15-29 5 Kidney failure <15 (or dialysis) 9 ORDER STATES MORNING DRAW, PT WAS AWARE THIS WAS A LATE DRAW 10 ORDER STATES MORNING DRAW, PT WAS AWARE THIS WAS A LATE DRAW 11 [facility] Specimen Source: vaginal 12 SEE RESULT BELOW Name: IZABEL GHOSHDIEUDONNE Castillo : [address]: Bin Jin MD Acct: [id number] Unit: [id number] AGE: 29 Location: ED Re06/14/15 SEX: F Status: DEP ER SPEC: [id number] VAUGHN: 06/14/15-[address] [facility] [address]: Bin Jin MD REQ: [id number] RECD: 06/14/15-172 STATUS: ELSA OREILLY DR: Tez Whitten MD _ SOURCE: VAGINAL SPDESC: ORDERED: Shruthi,Yeast DNA Procedure Result Verified Site Gardnerella/Yeast: Vaginal DNA Final 06/15/15- 1328 ML Organism 1 Negative Gardnerella Organism 2 Negative Fabiana The presence of G. vaginalis, although suggestive, is not diagnostic for bacterial vaginosis. Results should be interpreted in conjuction with other clinical and laboratory data available. Women with vaginal discharge should be evaluated for risk factors of cervicitis and pelvic inflammatory disease, toxic shock syndrome (S.aureus), and if present, evaluated for organisms not included in this assay such as N. gonorrhoeae, C. trachomatis, Mobiluncus, Mycoplasma and/or Prevotella. Mixed infections may occur. The performance of this test on patient specimens collected during or immediately after antimicrobial therapy is unknown. The presence or absence of Fabiana species, or G. vaginalis cannot be used as a test for therapeutic success or failure. * ML - MAIN LAB ([facility]) . END OF REPORT * ML=Testing performed at Main Lab DEPARTMENT OF PATHOLOGY, [address] [place] [address] Natan Go M.D. Director [facility] # [id number] Female urine specimens have been self-validated by [facility] and have been granted conditional assay approval by [facility]. [address] [facility] Specimen Source: vaginal GC/Chlamydia Source?: Endocervical Trichomonas Source: Endocervical 15 Because ethnic data is not always readily available, this report includes an eGFR for both -Americans and non- Americans. The National Kidney Disease Education Program (NKDEP) does not endorse the use of the MDRD equation for patients that are not between the ages of 18 and 70, are , have extremes of body size, muscle mass, or nutritional status, or are non- or non-. According to the National Kidney Foundation, irrespective of diagnosis, the stage of the disease is based on the level of kidney function: Stage Description GFR(mL/min/1.73 m(2)) 1 Kidney damage with normal or decreased GFR 90 2 Kidney damage with mild decrease in GFR 60-89 3 Moderate decrease in GFR 30-59 4 Severe decrease in GFR 15-29 5 Kidney failure <15 (or dialysis) 16 RUN DATE: 10/17/14 [facility] LAB LIVE PAGE 1 RUN TIME: [address] [place] [address] Specimen Inquiry Name: DAVINAKRIS R : [address]: Tez Whitten MD Acct: [id number] Unit: [id number] AGE: 28 Location: [facility] Re10/15/14 SEX: F Status: REG REF SPEC: [id number] VAUGHN: 10/15/14-[address]: Tez Whitten MD REQ: [id number] RECD: 01/ STATUS: COMP _ SOURCE: URINE SPDESC: ORDERED: Urine Culture QUERIES: Provider Requisition # [id number] Procedure Result Verified Site Urine Culture Final 10/17/14920 ML Organism 1 ESCHERICHIA COLI [place] Count 75-100,000 (Many) CFU/ML 1. ESCHERICHIA COLI M.I.C. RX --------- ------ Ampicillin >=32 R Cefazolin <=4 S Cefepime <=1 S Ceftriaxone <=1 S Ciprofloxacin <=0.25 S Gentamicin <=1 S Levofloxacin <=0.12 S Meropenem <=0.25 S Nitrofurantoin <=16 S Tetracycline <=1 S Pipercillin/Tazobactam <=4 S Trimethoprim/Sulfamethoxazole <=20 S Amoxicillin/Clavulanic Acid 4 S Aztreonam <=1 S Contact the Microbiology Department for any additional antibiotic reporting. END OF REPORT * ML=Testing performed at Main Lab DEPARTMENT OF PATHOLOGY, [address] [place] [address] Natan Go M.D. Director [facility] # [id number] 17 Because ethnic data is not always readily available, this report includes an eGFR for both -Americans and non- Americans. The National Kidney Disease Education Program (NKDEP) does not endorse the use of the MDRD equation for patients that are not between the ages of 18 and 70, are , have extremes of body size, muscle mass, or nutritional status, or are non- or non-. According to the National Kidney Foundation, irrespective of diagnosis, the stage of the disease is based on the level of kidney function: Stage Description GFR(mL/min/1.73 m(2)) 1 Kidney damage with normal or decreased GFR 90 2 Kidney damage with mild decrease in GFR 60-89 3 Moderate decrease in GFR 30-59 4 Severe decrease in GFR 15-29 5 Kidney failure <15 (or dialysis) 18 Normal Range 180 to 914 Indeterminate Range 145 to 180 Deficient Range <145 19 Less Than 1.0......Low Risk of Cardiovascular Disease 1.0-3.0............Medium Risk (<2 Fold Increase) Greater Than 3.0...High Risk (Approximately 2-Fold Increase) 20 No bands detected 21 No bands detected 22 Specific serologic response to B. burgdorferi infection is not detected, but cannot rule out early infection during which low or undetectable antibody levels to B. burgdorferi may be present. If clinically indicated, a new serum specimen should be submitted in 7-14 days. CDC criteria require >=5 bands for IgG or >=2 bands for IgM for the Immunoblot to be considered positive. Bands (e.g.,p41) may be detected in patients without Lyme disease, and patterns not meeting the CDC criteria should be interpreted with caution. Immunoblot should be ordered only on specimens that are positive or equivocal by a FDA-licensed Lyme disease antibody screening test (e.g., EIA). Test Performed by: [address] [place] [address] Internet Developer: Louie Beckwith III, M.D. 23 Because ethnic data is not always readily available, this report includes an eGFR for both -Americans and non- Americans. The National Kidney Disease Education Program (NKDEP) does not endorse the use of the MDRD equation for patients that are not between the ages of 18 and 70, are , have extremes of body size, muscle mass, or nutritional status, or are non- or non-. According to the National Kidney Foundation, irrespective of diagnosis, the stage of the disease is based on the level of kidney function: Stage Description GFR(mL/min/1.73 m(2)) 1 Kidney damage with normal or decreased GFR 90 2 Kidney damage with mild decrease in GFR 60-89 3 Moderate decrease in GFR 30-59 4 Severe decrease in GFR 15-29 5 Kidney failure <15 (or dialysis) 24 RUN DATE: 07/22/12 [facility] LAB LIVE PAGE 1 RUN TIME: [address] [place] [address] Specimen Inquiry Name: KRIS GHOSH : [address]: Tim Sandoval MD Acct: [id number] Unit: [id number] AGE: 26 Location: ED Re07/21/12 SEX: F Status: DEP ER SPEC: [id number] VAUGHN: 07/21/[address] [facility] [address]: Tim Sandoval MD REQ: [id number] RECD: 07/21/12 STATUS: ELSA OREILLY DR: Fish ROSADOTez Farhana SOURCE: VAGINAL SPDESC: ORDERED: Affirm Procedure Result Verified Site Affirm Vaginal DNA Probe Final 07/22/12- 1446 ML Trichomonas Negative Gardnerella Negative Fabiana Negative The presence of G. vaginalis, although suggestive, is not diagnostic for bacterial vaginosis. Results should be interpreted in conjunction with other clinical and laboratory data available. Women with vaginal discharge should be evaluated for risk factors of cervicitis and pelvic inflammatory disease, toxic shock syndrome (S.aureus), and if present, evaluated for organisms not included in this assay such as N. gonorrhoeae, C. trachomatis, Mobiluncus, Mycoplasma and/or Prevotella. Mixed infections may occur. The performance of this test on patient specimens collected during or immediately after antimicrobial therapy is unknown. The presence or absence of Fabiana species, G. vaginalis or T. vaginalis cannot be used as a test for therapeutic success or failure. END OF REPORT * ML=Testing performed at Main Lab DEPARTMENT OF PATHOLOGY, [facility] [employer] [place], [place] [address] Natan Go M.D. Director [facility] Permit #[id number] RUN DATE: 07/24/12 [facility] LIVE PAGE 1 RUN TIME: 1354 [facility] [employer] [place], [place] [address] Specimen Inquiry Name: KRIS GHOSH : [address]: Tim Sandoval MD Acct: [id number] Unit: [id number] AGE: 26 Location: ED Re07/21/12 SEX: F Status: DEP ER SPEC: [id number] VAUGHN: 07/21/[address] [facility] [address]: Tim Sandoval MD REQ: [id number] RECD: 07/21/12 STATUS: ELSA OREILLY DR: Tez Whitten MD _ S[facility] ORDERED: GC/Chlam RNA Procedure Result Verified Site Chlamydia Trachomatis RNA Final 07/24/12- 1356 ML NEGATIVE for Chlamydia trachomatis rRNA GC (N. gonorrhoeae) RNA Final 07/24/12- 1356 ML NEGATIVE for Neisseria gonorrhoeae rRNA A negative result does not preclude the presence of a C. trachomatis or N. gonorrhoeae infection because results are dependent on adequate specimen collection, absence of inhibitors, and sufficient rRNA to be detected. Test results may be affected by improper specimen collection, improper storage, technical error, or specimen mixup. Limitations of the Procedure: The Aptima Combo 2 Assay is not intended for the evaluation of suspected sexual abuse or for other medico-legal indications. For those patients for whom a false positive result may have adverse psychosocial impact, the CDC recommends retesting by a method using an alternate technology. Therapeutic failure or success cannot be determined with the Aptima Combo 2 Assay since nucleic acid may persist following appropriate antimicrobial therapy. Results from the Aptima Combo 2 Assay should be interpreted in conjunction with other laboratory and clinical data available to the clinican. Performance characteristics for detecting C. trachomatis and CONTINUED ON NEXT PAGE * ML=Testing performed at Main Lab DEPARTMENT OF PATHOLOGY, [address] [place] [address] Natan Go M.D. Director [facility] Permit #[id number] RUN DATE: 07/24/12 [facility] LIVE PAGE 2 RUN TIME: [address] [place] [address] Specimen Inquiry Patient: KRIS GHOSH [id number] (Continued) Specimen: [id number] Collected: 07/21/12 Received: 07/21/12 (Continued) Procedure Result Verified Site GC (N. gonorrhoeae) RNA Final (continued) 07/24/12- 1355 N. gonorrhoeae are derived from high prevalence populations. Positive results in low prevalence populations should be interpreted carefully with the understanding that the likelihood of a false positive may be higher than a true positive. END OF REPORT * ML=Testing performed at Main Lab DEPARTMENT OF PATHOLOGY, [facility] [employer] [place] [address] Natan Go M.D. Director [facility] Permit #[id number] 26 RUN DATE: 07/22/12 [facility] LIVE PAGE 1 RUN TIME: 905 [facility] [employer] [place], [place] [address] Specimen Inquiry Name: SHILPA GHOSHVERENICE Castillo : [address]: Tim Sandoval MD Acct: [id number] Unit: [id number] AGE: 26 Location: ED Re07/21/12 SEX: F Status: DEP ER SPEC: [id number] VAUGHN: 07/21/[address] [facility] [address]: Tim Sandoval MD REQ: [id number] RECD: 07/21/12 STATUS: ELSA OREILLY DR: Fish ROSADO,Tez _ SOURCE: STOOL [facility]: ORDERED: Hemoccult Procedure Result Verified Site Stool Specimen Description Final 07/22/12- 0906 ML Test not performed Stool Occult Blood Final 07/21/12- 2350 ML Stool Occult Blood Negative END OF REPORT * ML=Testing performed at Main Lab DEPARTMENT OF PATHOLOGY, [address] [place] [address] Natan Go M.D. Director [place] [facility] Permit #[id number] 27 A metabolite of Naproxen, O-desmethylnaproxen, has been shown to interfere with the [place] method for measuring total bilirubin. Samples from patients who have taken Naproxen have shown spurious elevation in total bilirubin levels. 28 Because ethnic data is not always readily available, this report includes an eGFR for both -Americans and non- Americans. The National Kidney Disease Education Program (NKDEP) does not endorse the use of the MDRD equation for patients that are not between the ages of 18 and 70, are , have extremes of body size, muscle mass, or nutritional status, or are non- or non-. According to the National Kidney Foundation, irrespective of diagnosis, the stage of the disease is based on the level of kidney function: Stage Description GFR(mL/min/1.73 m(2)) 1 Kidney damage with normal or decreased GFR 90 2 Kidney damage with mild decrease in GFR 60-89 3 Moderate decrease in GFR 30-59 4 Severe decrease in GFR 15-29 5 Kidney failure <15 (or dialysis) 29 If is still suspected, please repeat test after 48 to 72 hours. This test detects intact HCG only and is indicated for the early detection of . 30 A metabolite of Naproxen, O-desmethylnaproxen, has been shown to interfere with the [place] method for measuring total bilirubin. Samples from patients who have taken Naproxen have shown spurious elevation in total bilirubin levels. 31 Because ethnic data is not always readily available, this report includes an eGFR for both -Americans and non- Americans. The National Kidney Disease Education Program (NKDEP) does not endorse the use of the MDRD equation for patients that are not between the ages of 18 and 70, are , have extremes of body size, muscle mass, or nutritional status, or are non- or non-. According to the National Kidney Foundation, irrespective of diagnosis, the stage of the disease is based on the level of kidney function: Stage Description GFR(mL/min/1.73 m(2)) 1 Kidney damage with normal or decreased GFR 90 2 Kidney damage with mild decrease in GFR 60-89 3 Moderate decrease in GFR 30-59 4 Severe decrease in GFR 15-29 5 Kidney failure <15 (or dialysis) 32 RUN DATE: 07/17/12 [facility] LAB LIVE PAGE 1 RUN TIME: [address] [place] [address] Specimen Inquiry Name: KRIS GHOSH : [address]: Monique Webb NP Acct: [id number] Unit: [id number] AGE: 26 Location: [facility] Re07/16/12 SEX: F Status: REG REF SPEC: [id number] VAUGHN: 07/16/12-[address]: Monique Webb NP REQ: [id number] RECD: 07/16/12 STATUS: COMP _ SOURCE: STOOL SPDESC: ORDERED: Maria Dolores Valenzuela DNA QUERIES: Medent Number [id number] Procedure Result Verified Site C. difficile Amplified DNA Final 07/17/12- 1424 ML C. difficile Amplif DNA Positive: Toxigenic C. difficile with Pathogen Locus (PALOC) TEST LIMITATIONS: Assay does not distinguish between viable and nonviable organisms. Test results are to be used in conjunction with information available from the patient clinical evaluation and other diagnostic procedures. Two distinct groups have been identified that can harbor C. difficile asymptomatically at very high rates. Colonization at rates up to 50% and higher have been reported in infants and rates up to 32% in cystic fibrosis patients. END OF REPORT * ML=Testing performed at Main Lab DEPARTMENT OF PATHOLOGY, [facility] [employer] [place], [place] [address] Natan Go M.D. Director [facility] Permit #[id number] 33 RUN DATE: 07/17/12 [facility] LIVE PAGE 1 RUN TIME: [address] [place] [address] Specimen Inquiry Name: KRIS GHOSH : [address]: Monique Webb NP Acct: [id number] Unit: [id number] AGE: 26 Location: [facility] Re07/16/12 SEX: F Status: REG REF SPEC: [id number] VAUGHN: 07/16/[address] [facility] [address]: Monique Webb NP REQ: [id number] RECD: 07/16/12 STATUS: RES _ SOURCE: STOOL SPDESC: ORDERED: E.coli O157:H7, Hemoccult, Stool Culture, Fecal Lactoferr, O P: Giar/Cry QUERIES: Medent Number [id number] Procedure Result Verified Site E.coli O157:H7 Culture PENDING Stool Culture PENDING Stool Specimen Description Final 07/17/12- 1040 ML Stool Color Light Brown Stool Form Nonformed Stool Consistency Liquid Mucoid Shiga Toxin 1 2 PENDING Fecal Lactoferrin (Stool WBC) PENDING Stool Occult Blood Final 07/17/12- 1039 ML Stool Occult Blood Negative O P: Giardia/Cryptospor Screen PENDING END OF REPORT * ML=Testing performed at Main Lab DEPARTMENT OF PATHOLOGY, [facility] [employer] [place], [place] [address] Natan Go M.D. Director [facility] Permit #[id number] RUN DATE: 07/19/12 [facility] LIVE PAGE 1 RUN TIME: 1107 [address] [employer] [place], [place] [address] Specimen Inquiry Name: KRIS GHOSH : [address]: Monique Webb NP Acct: [id number] Unit: [id number] AGE: 26 Location: [facility] Re07/16/12 SEX: F Status: REG REF SPEC: [id number] VAUGHN: 07/16/12-[address] [facility] [address]: Monique Webb NP REQ: [id number] RECD: 07/16/121127 STATUS: COMP _ SOURCE: STOOL SPDESC: ORDERED: E.coli O157:H7, Hemoccult, Stool Culture, Fecal Lactoferr, O P: Giar/Cry QUERIES: Medent Number [id number] Procedure Result Verified Site E.coli O157:H7 Culture Final 07/19/12- 1107 ML E.COLI 0157 Culture No E.COLI 0157 Isolated Stool Culture Final 07/19/12- 1107 ML Result No enteric pathogens isolated Testing for Salmonella, Shigella, Aeromonas, Plesiomonas, Yersinia and Campylobacter are included in a Stool Culture. Vibrio spp not routinely tested for in a stool culture. If testing is desired, please request specifically when placing test order. Sensitivities not routinely performed on stool isolates, as antibiotics may prolong the carriage rate of bacteria. Please contact the microbiology lab if sensitivities are required. Stool Specimen Description Final 07/17/12- 1040 ML Stool Color Light Brown Stool Form Nonformed Stool Consistency Liquid Mucoid Shiga Toxin 1 2 Final 07/18/12- 1016 ML SHIGA TOXIN 1 Negative by Immunochromatographic Assay SHIGA TOXIN 2 Negative by Immunochromatographic Assay Fecal Lactoferrin (Stool WBC) Final 07/17/12- 1343 ML Fecal Lactoferrin Positive by Immunoassay CONTINUED ON NEXT PAGE * ML=Testing performed at Main Lab DEPARTMENT OF PATHOLOGY, [facility] [employer] [place], [place] [address] Natan Go M.D. Director [facility] Permit #[id number] RUN DATE: 07/19/12 [facility] LIVE PAGE 2 RUN TIME: 1106 [facility] [employer] [place], [place] [address] Specimen Inquiry Patient: KRIS GHOSH [id number] (Continued) Specimen: [id number] Collected: 07/16/12 Received: 07/16/12 (Continued) Procedure Result Verified Site Fecal Lactoferrin (Stool WBC) Final (continued) 07/17/12- 1343 TEST LIMITATIONS: Assay detects elevated levels of lactoferrin released from fecal leukocytes as a marker of intestinal inflammation. The test may not be appropriate in immunocompromised persons. Fecal samples from breast fed infants should not be used with this assay. Stool Occult Blood Final 07/17/12- 1039 ML Stool Occult Blood Negative O P: Giardia/Cryptospor Screen Final 07/18/12- 1445 ML Giardia Antigen Negative by Immunoassay Cryptosporidium Antigen Negative by Immunoassay Giardia and cryptosporidium antigen testing performed by immunoassay. If patient is immunocompromised or has traveled to or is from a developing country, a full ova and parasite exam with microscopic (OPMIC) is recommended. All samples will be held one month in case full ova and parasite testing is requested. Contact the Microbiology Department at [phone]. TEST LIMITATIONS: As with all diagnostic procedures, the results obtained should be used in conjunction with other clinical information available the physician. Negative results can occur in samples containing antigen below lower limits of detection of the assay. The use of colonic washes, aspirates or other diluted sample types has not been established and could affect the performance of the assay. Stool samples contaminated with an oily or particulate base (eg. Barium, mineral oil etc.) could interfere with the test and are not recommended. END OF REPORT * ML=Testing performed at Main Lab DEPARTMENT OF PATHOLOGY, [facility] [employer] [place], [place] [address] Natan Go M.D. Director [facility] Permit #[id number] RUN DATE: 07/18/12 [facility] LIVE PAGE 1 RUN TIME: 7584 [facility] [employer] [place], [place] [address] Specimen Inquiry Name: KRIS GHOSH : [address]: Monique Webb NP Acct: [id number] Unit: [id number] AGE: 26 Location: [facility] Re07/16/12 SEX: F Status: REG REF SPEC: [id number] VAUGHN: 07/16/[address]: Monique Webb NP REQ: [id number] RECD: 07/16/12 STATUS: RES _ SOURCE: STOOL SPDESC: ORDERED: E.coli O157:H7, Hemoccult, Stool Culture, Fecal Lactoferr, O P: Coleen/Daryn QUERIES: Medent Number [id number] Procedure Result Verified Site E.coli O157:H7 Culture Preliminary 07/18/12- 1212 ML Stool Culture Preliminary 07/18/12- 1212 ML <No reportable results for this procedure> Stool Specimen Description Final 07/17/12- 1040 ML Stool Color Light Brown Stool Form Nonformed Stool Consistency Liquid Mucoid Shiga Toxin 1 2 Final 07/18/12- 1016 ML SHIGA TOXIN 1 Negative by Immunochromatographic Assay SHIGA TOXIN 2 Negative by Immunochromatographic Assay Fecal Lactoferrin (Stool WBC) Final 07/17/12- 1343 ML Fecal Lactoferrin Positive by Immunoassay TEST LIMITATIONS: Assay detects elevated levels of lactoferrin released from fecal leukocytes as a marker of intestinal inflammation. The test may not be appropriate in immunocompromised persons. Fecal samples from breast fed infants should not be used with this assay. Stool Occult Blood Final 07/17/12- 1039 ML Stool Occult Blood Negative O P: Giardia/Cryptospor Screen Final 07/18/12- 1445 ML Giardia Antigen Negative by Immunoassay Cryptosporidium Antigen Negative by Immunoassay CONTINUED ON NEXT PAGE * ML=Testing performed at Main Lab DEPARTMENT OF PATHOLOGY, [facility] [employer] [place], [place] [address] Natan Go M.D. Director [facility] Permit #[id number] RUN DATE: 07/18/12 [facility] LAB LIVE PAGE 2 RUN TIME: 154 [facility] [employer] [place], [place] [address] Specimen Inquiry Patient: KRIS GHOSH [id number] (Continued) Specimen: [id number] Collected: 07/16/12 Received: 07/16/12 (Continued) Procedure Result Verified Site O P: Giardia/Cryptospor Screen Final (continued) 07/18/12- 1445 Giardia and cryptosporidium antigen testing performed by immunoassay. If patient is immunocompromised or has traveled to or is from a developing country, a full ova and parasite exam with microscopic (OPMIC) is recommended. All samples will be held one month in case full ova and parasite testing is requested. Contact the Microbiology Department at [phone]. TEST LIMITATIONS: As with all diagnostic procedures, the results obtained should be used in conjunction with other clinical information available the physician. Negative results can occur in samples containing antigen below lower limits of detection of the assay. The use of colonic washes, aspirates or other diluted sample types has not been established and could affect the performance of the assay. Stool samples contaminated with an oily or particulate base (eg. Barium, mineral oil etc.) could interfere with the test and are not recommended. END OF REPORT * ML=Testing performed at Main Lab DEPARTMENT OF PATHOLOGY, [address] [place] [address] Natan Go M.D. Director [facility] Permit #[id number] RUN DATE: 07/17/12 [facility] LAB LIVE PAGE 1 RUN TIME: 1343 [address] [facility], [place], [place] [address] Specimen Inquiry Name: KRIS GHOSH Anna : [address]: Monique Webb NP Acct: [id number] Unit: [id number] AGE: 26 Location: [facility] Re07/16/12 SEX: F Status: REG REF SPEC: [id number] VAUGHN: 07/16/12-[address]: Monique Webb NP REQ: [id number] RECD: 07/16/12 STATUS: RES _ SOURCE: STOOL SPDESC: ORDERED: E.coli O157:H7, Hemoccult, Stool Culture, Fecal Lactoferr, O P: Gimarilou/Daryn QUERIES: Medent Number [id number] Procedure Result Verified Site E.coli O157:H7 Culture PENDING Stool Culture Preliminary 07/17/12- 1203 ML <No reportable results for this procedure> Stool Specimen Description Final 07/17/12- 1040 ML Stool Color Light Brown Stool Form Nonformed Stool Consistency Liquid Mucoid Shiga Toxin 1 2 PENDING Fecal Lactoferrin (Stool WBC) Final 07/17/12- 1343 ML Fecal Lactoferrin Positive by Immunoassay TEST LIMITATIONS: Assay detects elevated levels of lactoferrin released from fecal leukocytes as a marker of intestinal inflammation. The test may not be appropriate in immunocompromised persons. Fecal samples from breast fed infants should not be used with this assay. Stool Occult Blood Final 07/17/12- 1039 ML Stool Occult Blood Negative O P: Giardia/Cryptospor Screen PENDING END OF REPORT * ML=Testing performed at Main Lab DEPARTMENT OF PATHOLOGY, [facility] [employer] [place], [place] [address] Natan Go M.D. Director [facility] Permit #[id number] RUN DATE: 07/18/12 [facility] LAB LIVE PAGE 1 RUN TIME: 2897 [facility] [employer] [place], [place] [address] Specimen Inquiry Name: KRIS GHOSH : [address]: Monique Webb NP Acct: [id number] Unit: [id number] AGE: 26 Location: [facility] Re07/16/12 SEX: F Status: REG REF SPEC: [id number] VAUGHN: 07/16/12-[address]: Monique Webb NP REQ: [id number] RECD: 07/16/12 STATUS: RES _ SOURCE: STOOL SPDESC: ORDERED: E.coli O157:H7, Hemoccult, Stool Culture, Fecal Lactoferr, O P: Coleen/Daryn QUERIES: Medent Number [id number] Procedure Result Verified Site E.coli O157:H7 Culture PENDING Stool Culture Preliminary 07/17/12- 1203 ML <No reportable results for this procedure> Stool Specimen Description Final 07/17/12- 1040 ML Stool Color Light Brown Stool Form Nonformed Stool Consistency Liquid Mucoid Shiga Toxin 1 2 Final 07/18/12- 1016 ML SHIGA TOXIN 1 Negative by Immunochromatographic Assay SHIGA TOXIN 2 Negative by Immunochromatographic Assay Fecal Lactoferrin (Stool WBC) Final 07/17/12- 1343 ML Fecal Lactoferrin Positive by Immunoassay TEST LIMITATIONS: Assay detects elevated levels of lactoferrin released from fecal leukocytes as a marker of intestinal inflammation. The test may not be appropriate in immunocompromised persons. Fecal samples from breast fed infants should not be used with this assay. Stool Occult Blood Final 07/17/12- 1039 ML Stool Occult Blood Negative CONTINUED ON NEXT PAGE * ML=Testing performed at Main Lab DEPARTMENT OF PATHOLOGY, [facility] [employer] [place] [address] Natan Go M.D. Director [facility] Permit #[id number] RUN DATE: 07/18/12 [facility] LAB LIVE PAGE 2 RUN TIME: 1016 [facility] [employer] [place], [place] [address] Specimen Inquiry Patient: KRIS GHOSH [id number] (Continued) Specimen: [id number] Collected: 07/16/12 Received: 07/16/12 (Continued) Procedure Result Verified Site O P: Giardia/Cryptospor Screen PENDING END OF REPORT * ML=Testing performed at Main Lab DEPARTMENT OF PATHOLOGY, [facility] [employer] [place], [place] [address] Natan Go M.D. Director [facility] Permit #[id number] RUN DATE: 07/18/12 [facility] LAB LIVE PAGE 1 RUN TIME: [address] [place] [address] Specimen Inquiry Name: KRIS GHOSH : [address]: Monique Webb NP Acct: [id number] Unit: [id number] AGE: 26 Location: [facility] Re07/16/12 SEX: F Status: REG REF SPEC: [id number] VAUGHN: 07/16/[address] [facility] [address]: Monique Webb NP REQ: [id number] RECD: 07/16/12 STATUS: COMP _ SOURCE: URINE SPDESC: ORDERED: Urine Culture QUERIES: Medent Number [id number] Procedure Result Verified Site Urine Culture Final 07/18/12- 1111 ML Organism 1 NORMAL LINDA Hineston Count 10-25,000 (Moderate) CFU/ML END OF REPORT * ML=Testing performed at Main Lab DEPARTMENT OF PATHOLOGY, [address] [place] [address] Natan Go M.D. Director [facility] Permit #[id number] RUN DATE: 02/22/12 [facility] NMI LIVE PAGE 1 RUN TIME: 836 Specimen Inquiry RUN USER: INTERFACE Name: KRIS GHOSH Status: REG REF Re02/20/12 Age/Sex: 26/F Unit#: [id number] Location: [facility]il[facility]aggoner. : [birth year] SPEC #: [id number] VAUGHN: 02/20/12-1299 STATUS: ELSA MAJANO #: [id number] RECD: 02/20/[address]: Tez Whitten MD SOURCE: STOOL ENTR: 02/20/[address] [facility] [address]: JOSE ANGEL: ORDERED: STOOL CULTURE, O P: GIAR/CRYP, STL LACTOFERRIN ACT WKST: B 02/21/12 #1 Procedure Result Verified Site > STOOL CULT SENSITIVITY Final -36 ML NEGATIVE FOR THE ENTERIC PATHOGENS - SALMONELLA, SHIGELLA, AEROMONAS, PLESIOMONAS AND YERSINIA. VIBRIO AND E. COLI 0157 NOT ROUTINELY TESTED FOR IN A STOOL CULTURE. PLEASE SUBMIT SAMPLE WITH SPECIFIC REQUEST FOR DESIRED ORGANISM(S). > STOOL SPECIMEN DESCRIPTION Final -2117 ML STOOL COLOR BROWN STOOL FORM NONFORMED STOOL CONSISTENCY PASTY > CAMPYLOBACTER CULTURE Final -0836 ML NO GROWTH OF CAMPYLOBACTER AFTER 48 HOURS > SHIGA TOXIN 1 AND 2 (EHEC) Final -1133 ML SHIGA TOXIN 1 NEGATIVE BY IMMUNOCHROMATOGRAPHIC ASSAY SHIGA TOXIN 2 NEGATIVE BY IMMUNOCHROMATOGRAPHIC ASSAY > O P: GIARDIA/CRYPTO SCREEN Final -1054 ML GIARDIA ANTIGEN NEGATIVE BY IMMUNOASSAY CRYPTOSPORIDIUM ANTIGEN NEGATIVE BY IMMUNOASSAY Giardia and cryptosporidium antigen testing performed by immunoassay. If patient is immunocompromised or has traveled to or is from a developing country, a full ova and parasite exam with microscopic (OPMIC) is recommended. All samples will be held one month in case full ova and parasite testing is requested. Contact the Microbiology Department at [phone]. TEST LIMITATIONS: As with all diagnostic procedures, the results obtained should be used in conjunction with other clinical information available the physician. Negative results can occur in samples containing antigen below lower limits of DEPARTMENT OF PATHOLOGY, [address] [place] [address] [facility] Permit #[id number] Roderick Avery M.D. [employer] Chief RUN DATE: 02/22/12 [facility] NMI LIVE PAGE 2 RUN TIME: 836 Specimen Inquiry RUN USER: INTERFACE [id number] Status: REG REF Re02/20/12 Age/Sex: 26/F Unit#: [id number] Location: [facility]. : [birth year] -- -- CONTINU ED Procedure Result Verified Site O P: GIARDIA/CRYPTO SCREEN Final (continued) 02/21/12- 1054 detection of the assay. The use of colonic washes, aspirates or other diluted sample types has not been established and could affect the performance of the assay. Stool samples contaminated with an oily or particulate base (eg. Barium, mineral oil etc.) could interfere with the test and are not recommended. > FECAL LACTOFERRIN (STOOL WBC) Final -1346 ML FECAL LACTOFERRIN NEGATIVE BY IMMUNOASSAY TEST LIMITATIONS: Assay detects elevated levels of lactoferrin released from fecal leukocytes as a marker of intestinal inflammation. The test may not be appropriate in immunocompromised persons. Fecal samples from breast fed infants should not be used with this assay. - [facility] State Permit #[id number] [facility] [employer] [place] [address] DEPARTMENT OF PATHOLOGY, [facility] [employer] [place] [address] [facility] Permit #[id number] Natan Go M.D. Director Carly Kenyon M.D. [employer] Operator Chief 40 Anion gap measurement may be of limited value in the presence of any alkalosis, especially in a combined acid base disorder. . 41 A metabolite of Naproxen, O-desmethylnaproxen, has been shown to interfere with the [place]-Sharon method for measuring total bilirubin. Samples from patients who have taken Naproxen have shown spurious elevation in total bilirubin levels. 42 Because ethnic data is not always readily available, this report includes an eGFR for both -Americans and non- Americans. The National Kidney Disease Education Program (NKDEP) does not endorse the use of the MDRD equation for patients that are not between the ages of 18 and 70, are , have extremes of body size, muscle mass, or nutritional status, or are non- or non-. According to the National Kidney Foundation, irrespective of diagnosis, the stage of the disease is based on the level of kidney function: Stage Description GFR(mL/min/1.73 m(2)) 1 Kidney damage with normal or decreased GFR 90 2 Kidney damage with mild decrease in GFR 60-89 3 Moderate decrease in GFR 30-59 4 Severe decrease in GFR 15-29 5 Kidney failure <15 (or dialysis) 43 Anion gap measurement may be of limited value in the presence of any alkalosis, especially in a combined acid base disorder. . 44 A metabolite of Naproxen, O-desmethylnaproxen, has been shown to interfere with the Jend[place]-Sharon method for measuring total bilirubin. Samples from patients who have taken Naproxen have shown spurious elevation in total bilirubin levels. 45 Because ethnic data is not always readily available, this report includes an eGFR for both -Americans and non- Americans. The National Kidney Disease Education Program (NKDEP) does not endorse the use of the MDRD equation for patients that are not between the ages of 18 and 70, are , have extremes of body size, muscle mass, or nutritional status, or are non- or non-. According to the National Kidney Foundation, irrespective of diagnosis, the stage of the disease is based on the level of kidney function: Stage Description GFR(mL/min/1.73 m(2)) 1 Kidney damage with normal or decreased GFR 90 2 Kidney damage with mild decrease in GFR 60-89 3 Moderate decrease in GFR 30-59 4 Severe decrease in GFR 15-29 5 Kidney failure <15 (or dialysis) 46 Imm. NE 1 47 If is still suspected, please repeat test after 48 to 72 hours. . 48 Anion gap measurement may be of limited value in the presence of any alkalosis, especially in a combined acid base disorder. . 49 Classification: Desirable . 50 CALCULATED LDL APPROXIMATES THE VALUE OF A DIRECT LDL MEASUREMENT. Classification: Optimal Level . Procedures Date CPT Code Description Status 01/09/2015 06577 EKG, at Least 12 Leads w/Interpretation and Report Completed 01/02/2015 38870 Removal Of IUD Completed 02/06/2014 52182 IUD Insertion Completed Encounters Type Date Location Provider CPT E/M Dx Office Visit 10/17/2017 3:15p Main Office Tez Whitten M.D. 82465 F32.9 Office Visit 04/14/2017 4:45p Main Office MICAELA Ramos-C 07668 G24.8 Office Visit 04/07/2017 10:45a Main Office Aysha Connor FILLER WIPER-C 20976 F32.89 Office Visit 01/23/2017 12:00p Main Office Monique Webb [employer]-C 65452 K03.2 Office Visit 01/05/2017 3:30p Main Office Aysha Connor [employer]ER WIPER-C 25644 K03.2 Office Visit 01/02/2017 10:45a Main Office Aysha Connor [employer]ER WIPER-C 63869 K03.2 Office Visit 12/19/2016 11:30a Main Office Aysha Connor F[employer]ER WIPER-C 03579 F32.89 K03.2 Office Visit 12/15/2016 5:00p [place] [address] K03.2 Office Visit 11/21/2016 2:15p Main Office Aysha Connor [employer] WIP[employer]-C 71662 F32.89 Office Visit 09/08/2016 4:30p Main Office Tez Whitten M.D. 90813 F41.9 Office Visit 08/03/2016 3:15p [place] [address] F41.9 Office Visit 07/29/2016 11:30a Main Office Bin Lazaro III, FILLER WIPER-C 42471 K03.2 Office Visit 07/02/2016 10:45a Main Office Monique Webb [employer]-C 35575 O91.23 Office Visit 05/05/2016 3:45p Main Office Aysha Connor [employer]-C 14128 O91.23 Office Visit 02/16/2016 11:45a Main Office Aysha Connor [facility]C 60970 H10.023 Office Visit 10/24/2015 11:30a [place] [address] K21.9 Office Visit 06/30/2015 1:45p Main Office JESSICA SchaferP-C 74759 Z33.1 F33.1 K21.9 Z72.0 G47.00 Office Visit 06/15/2015 3:45p Main Office MICAELA Ramos-C 96542 O00.9 Office Visit 04/07/2015 2:00p Main Office RADHA Ramos 90755 724.5 Office Visit 02/18/2015 3:30p Main Office Tez Whitten M.D. 00138 465.9 Office Visit 01/02/2015 2:30p Main Office MICAELA Schafer-C 84886 V25.9 780.52 Office Visit 10/15/2014 2:45p Main Office Tez Whitten M.D. 42195 599.0 Office Visit 08/25/2014 11:30a Main Office MICAELA Schafer-C 24146 376.01 Office Visit 08/05/2014 3:15p Main Office RADHA Ramos 04708 611.9 Office Visit 03/14/2014 3:15p Main Office RADHA Ramos 23882 704.2 783.21 Office Visit 02/04/2014 2:15p Main Office Tez Whitten M.D. 38991 724.5 Office Visit 08/26/2013 10:00a Main Office Izabella Whittington M.D. 85202 708.0 522.5 300.02 Office Visit 08/20/2013 2:00p Main Office Tez Whitten M.D. 23131 708.0 Office Visit 04/10/2013 11:45a Main Office Tez Whitten M.D. 90266 311 Office Visit 12/25/2012 1:30p Main Office RADHA Ramos 60430 461.9 Office Visit 12/14/2012 4:00p Main Office MICAELA Ramos-C 64298 528.5 Office Visit 07/31/2012 9:00a Main Office MICAELA Ramos-C 34847 008.45 Office Visit 07/16/2012 2:45p Main Office JESSICA RamosP-C 11442 787.91 Office Visit 01/25/2012 3:15p Main Office Tez Whitten M.D. 47544 789.07 Office Visit 01/09/2012 12:00p Main Office MICAELA Ramos-Constantine 73837 848.8 Office Visit 07/18/2011 11:30a Main Office Izabella Whittington M.D. 18311 847.1 Office Visit 06/30/2011 11:30a Main Office Tez Whitten M.D. 49617 527.2 Office Visit 06/16/2011 3:30p Main Office Tez Whitten M.D. 06310 465.9 Office Visit 06/09/2011 3:45p Main Office Tez Whitten M.D. 15913 311 305.00 Office Visit 12/03/2010 10:45a Main Office Tez Whitten M.D. 42187 305.00 311 530.81 465.9 305.1 Office Visit 10/05/2010 10:45a Main Office Tez Whitten M.D. 61486 305.00 311 530.81 305.1 Office Visit 12/15/2009 10:45a Main Office Tez Whitten M.D. 92531 311 530.81 Office Visit 11/21/2008 9:45a Main Office Tez Whitten M.D. 99057 727.04 311 Office Visit 01/30/2008 9:30a Main Office Tez Whitten M.D. 24769 311 Office Visit 01/03/2008 2:00p Main Office Tez Whitten M.D. 17141 311 Office Visit 11/12/2007 3:00p Main Office Hipolito Tatum M.D. 35225 461.0 Office Visit 10/23/2007 3:00p Main Office Tez Whitten M.D. 86379 787.1 Office Visit 08/22/2007 2:15p Main Office Tez Whitten M.D. 34346 787.1 780.52 Office Visit 08/08/2007 10:00a Main Office Tez Whitten M.D. 12529 789.02 Office Visit 07/31/2007 2:15p Main Office Tez Whitten M.D. 47170 787.1 Office Visit 11/01/2006 9:45a Main Office Tez Whitten M.D. 16266 V70.0 311 787.1 305.1 289.89 Office Visit 07/06/2006 11:00a Main Office Tez Whitten M.D. 23662 558.9 311 Plan of Care Future Appointment(s):11/07/2017 1:15 pm - Tez Whitten M.D. at Main Ikmooo7210/24 - Tez Whitten M.D.F32.9 Major depressive disorder, single episode, unspecifiedComments:Has followed through with establishing care with [facility].Denies SI.Willing to contract for saftey. Continue effexor for now.Can consider increasing rx to 14 days at next visit.Follow up:Recheck 2 weeks.
--- OUTSIDE RECORDS SUMMARY | 2017-11-04 18:25 | XMS REPORT ---
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 PayID: [id number] [place] [address] Medisan antonio Part B Effective: Policy Number: Nadir Sharp R 07/26/2013 [id number] Davina Expires: 03/24/2015 Group Name: Wally LIUHP [address] [address] PayID: [id number] KODAK Santamaria [address] Medigap Part B Effective: Policy Number: Nadir Sharp R 03/25/2015 [id number] Davina Expires: 09/24/2016 Group Name: Karlie Mckeon HDHP [address] [address] PayID: [id number] KODAK Santamaria [id number] Medigap Part B Effective: Policy Number: Nadir Sharp R 09/25/2016 [id number] Davina Expires: 07/24/2017 Group Name: Redd [address] [address] PayID: [id number] KODAK Santamaria [id number] Medigap Part B Effective: Policy Number: Medicaid/Computer Kris R 08/25/2017 [id number] [facility] Davina Expires: 09/24/2017 Group Name: 1 1 [address] PayID: [id number] [place] [address] Commercial Effective: Policy Number: Caleb Castillo 09/25/2017 [id number] Medicaid Ghosh PayID: [id number] [address] [place] [address] Problems Description No Active Problems Family History Date Family Member(s) Problem(s) Comments : (age 60 Father due to Pneumonia and first MA Years) Mother Thyroid Disease Children 1 Siblings 3 First Brother Asthma First Brother due to Suicide () First Brother Bipolar Disorder Second Brother brain cancer Third Brother Unknown : (age 82 Paternal Grandfather due to Multiple Years) Sclerosis Paternal Grandmother Osteoporosis Paternal Grandmother due to "Old Age" () Maternal Grandfather MA Maternal Grandfather due to MA () Maternal Grandmother Ulcerative Colitis Maternal Grandmother due to Kidney () Disease Maternal Grandmother Hepatitis C Social History Type Date Description Comments Marital Status Lives With Daughter (shares custody with her former ) Diet "Horrible" high cholesterol, high fat. Omnivore. 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 ml sprays in Storm, each [employer] OPERATOR-[employer] nostril every day Venlafaxine HCL 07/03 Active Caps ER 75mg 7caps 1 by mouth F32.89 Tez ER /2016 24HR every day Roderick Whitten Ibuprofen 01/23 Active Tablets 600mg 120ta take one bs tablet by Tracey, mouth 4 [employer]E H[employer] OPER[employer] times daily with food as needed for pain 07/18 Active Tablets 27-0.8mg 90tab Take One Shawnti R. /2015 s Tablet By Storm, Mouth [employer]CR[employer] OPERATOR-C Every Day Indy 02/28 Active Tablets 0.35mg 84tab Take One Shawnti R. s Tablet By [place], Mouth [employer]CRETE HOPPER OPERATOR-C Every Day Prevacid 10/[address] 30mg 60cap take one K21.9 Shawnti R. s capsule Storm, daily. [employer]PER OPER[employer]-C Venlafaxine HCL 04/07 Hx Caps ER 150mg 30cap 1 by mouth F32.89 Shawnti R. ER 24HR s every day Storm, - [employer]PER OPERATOR-C 07/03 Penicillin V 01/23 Hx Tablets 500mg 30tab 1 tab by K03.2 Monique Potassium s mouth Tracey, - three [employer]CR[employer]PER OPERATOR-C 04/06 times day x 10 days Oxycodone-Acetam 01/16 Hx Tablets 5-325mg 21tab 1 by mouth K03.2 Chriswnti R. inophen s three , - times [employer] HOPPER OPERATOR-C 01/30 daily needed for pain prior to meals Hydrocodone-Acet 01/05 Hx Tablets 5-325mg 30tab 1 by mouth K03.2 Shawnti R. aminophen s an hour , - before [employer]CR[employer] H[employer]PER OPERATOR-C 01/16 meals, to 4 times daily Fluoxetine HCL 12/19 Hx Capsules 10mg 90cap 1 by mouth F33.1 Chriswnti R. s every , - morning [employer]E H[employer]PER OPERATOR-C 10/16 Percocet 12/15 Hx Tablets 5-325mg 42tab 1 tab by K03.2 Chriswnti R. s mouth Nikolas, - three [employer]CRET[employer] HOPPER OPERATOR-C 01/05 times day as needed Effexor XR 11/21 Hx Caps ER 75mg 30cap 1 by mouth F32.89 Shawnti R. /2016 24HR s every day , - [employer]CRET[employer] H[employer]PER OPERATOR-C 04/07 Gabapentin 10/19 Hx Capsules 300mg 35cap take 1-2 Blanca s capsules P. Blegen, - by mouth M.D. 01/30 times a day as needed- Ok To Fill Tonight Neurontin 09/08 Hx Capsules 100mg 60cap 2 by mouth Shawnti R. /2015 s three Storm, - times a [employer] H[employer]PER OPERATOR-C 12/12 day needed Buspirone HCL 08/03 Hx [...] Bin s mouth Iveth - twice III, [employer] H[employer]PER OPERATOR-C 04/07 daily Oxycodone HCL 07/29 Hx Tablets 5mg 10tab 1 tab by K03.2 s mouth up Hussain, - to twice a MD 09/07 day needed for severe dental pain Cephalexin 07/02 Hx Tablets 500mg 40tab take 1 O91.23 s tablet by Tracey, - mouth four [employer]CR[employer] H[employer]PER OPERATOR-C 07/29 times day x 10 days Oxycodone-Acetam 07/02 Hx Tablets 5-325mg 4tabs take one O91.23 Monique phen tablet by Tracey, - mouth [employer]CR[employer] HOPPER OPERATOR-C 07/29 twice day as needed for pain Dicloxacillin 05/05 Hx Capsules 500mg 30cap 1 po tid O91.23 Shawnti R. Sodium /2015 s for 10 Storm, - days [employer]CR[employer] H[employer]PER OPERATOR-C 05/15 Percocet 02/17 Hx Tablets 5-325mg 20tab 1-2 po Manish s q4hrs prn Hussain, - 07/02 Sulfacetamide 02/15 Hx Solution 10% 15ml 2 drops H10.023 Shawnti R. Sodium right eye Storm, - four times [employer] H[employer]PER OPERATOR-C 02/25 a day for 5 days Carafate 10/24 Hx Suspension 1GM/10ML 180un 5-10 ml by K21.9 its mouth Hussain, - three MD 11/04 times a day as needed 1 06/30 Hx Capsules 30-0.975- 90cap 1 po daily Shawnti R. 200mg s Nikolas, - [employer] H[employer]PER OPERATOR-C 07/18 Ranitidine HCL 06/30 Hx Capsules 150mg 60cap one by Shawnti R. s mouth Nikolas, - twice [employer] H[employer]PER OPERATOR-C 07/29 daily needed for heart burn Fluoxetine HCL 06/30 Hx Capsules 20mg 90cap Take One F33.1 Shawnti R. s Capsule By Nikolas, - Mouth [employer]CRETE H[employer]PER OPERATOR-C 12/19 Every Day Hydrocodone-Acet 06/15 Hx Tablets 5-325mg 20tab 1 by mouth Monique aminophen s q4 - 6 Tracey, - hours as [employer]CRETE HOPPER OPERATOR-C 06/30 needed Omeprazole 04/[address] 40mg 30cap 1 by mouth s every day Tracey, - [employer]CR[employer] H[employer]PER OPERATOR-C 06/30 Carisoprodol 04/07 Hx Tablets 350mg 30thi 1 tablet 724.5 rty three Tracey, - times a [employer] H[employer]PER OPERATOR-C 06/30 day needed muscle spasm Pantoprazole 01/[address] 40mg 90tab 1 by mouth Tez Escamilla s every day Dov Whitten M.DAlice 04/07 Indy 01/02 Hx Tablets 0.35mg 90tab 1 by mouth V25.9 Chriswnti R. s every day , - [employer]CRET[employer] H[employer]PER OPERATOR-C 06/30 Trazodone HCL 01/02 Hx Tablets 50mg 30tab 1 tablet 780.52 Chriswnti R. s po at , - bedtime if [employer]CRETE HOPPER OPERATOR-C 04/07 needed for sleep Sulfamethoxazole 10/15 Hx Tablets 800-160mg 6tabs 1 by mouth 599.0 Tez /Trimethoprim twice a Fish, - day x 3 M.D. Clindamycin HCL 08/26 Hx Capsules 300mg 30cap 1 by mouth Chriswnti R. s three Nikolas, - times a [employer]CRETE H[employer]PER OPERATOR-C 09/05 day for days for Infection Augmentin 08/25 Hx Tablets 875-125mg 20tab 1 by mouth Chriswnti R. s twice a Storm, - day for [employer] HOPPER OPERATOR-C 08/26 infection Ferrous 03/16 Hx Tablets 324(38Fe) 60tab 1 by mouth Monique Gluconate /2013 mg s qd-bid Tracey, - [employer]CRETE H[employer]PER OPERATOR-C 04/07 Sulfacetamide 02/08 Hx Solution 10% 1bott 2 drops Shawnti R. Sodium /2013 le both eyes , - 4 times [employer]CRETE HOPPER OPERATOR-C 04/07 daily for 5 days Mirena 02/06 Hx IUD 20mcg/24H placed January Shawnti R. /2013 R 2014, - [employer]CRETE HOPPER OPERATOR-C 04/07 Tizanidine HCL 02/04 Hx Tablets 2mg [...] bid x 10 Tracey, Potassium - days [employer]CRETE HOPPER OPERATOR-C 08/12 Metronidazole 07/17 Hx Tablets 500mg 42tab take 1 s tablet po Tracey, - tid x 14 [employer]CRETE HOPPER OPERATOR-C Dicyclomine HCL 07/16 Hx Tablets 20mg 40tab 1 tablet s po qid Tracey, - [employer]CRETE HOPPER OPERATOR-C 12/14 Cyclobenzaprine 07/13 Hx Tablets 5mg 30tab 1/2-2 po s tid prnFish, - will cause M.D. 01/17 drowsiness Omeprazole 07/[address] 20mg 60cap Take One s Capsule By Tracey, - Mouth [employer]CRETE HOPPER OPERATOR-C 01/09 Twice A Day Excuse For Work [...] Hx Tablets 2mg 1 qhs prn Dov Whitten M.D. 08/22 Excuse From Work 07/06 Hx PT was in 558.9 our clinic Dov Whitten. M.DAlice 07/11 Needs be out of work today, Ok to return Monday. Effexor XR 03/25 Hx Capsules 75mg 30cap 1 po qd s - 11/01 Immunizations CPT Code Status Date Vaccine Lot # [id number] Given 05/25/2017 Influenza Virus Vaccine, Quadrivalent, 3 Yr > [id number] Quad, Preserv Free 00294 Given 08/11/2016 Influenza Virus Vaccine, Quadrivalent, 3 Yr > [id number] Quad, Preserv Free Vital Signs Date Vital Result Comment 10/17/2017 Weight 125.00 lb Weight in kg's [...] Color Yellow Urine Appearance Clear Urine Specific [place] 1.013 1.010-1.030 Urine pH 6.0 5-9 Urine [...] NOTE) 16 Sensitivities Urine DIP 10/15/2014 Specific [place] 1.010 1.01-1.02 Urine pH 7 High 5-6 [...] Color Yellow Urine Appearance Clear Urine Specific [place] 1.006 Low 1.010-1.030 Urine Esterase Negative Negative [...] Color Yellow Urine Appearance Clear Urine Specific [place] 1.011 1.010-1.030 Urine Esterase Negative Negative Urine [...] NEG Neg Urine Blood TRACE Neg Specific [place] NA Low 1.01-1.02 Stool Panel ([facility]) 02/20/2012 Stool Culture <SEE [...] 5-9 Protein-Urine NEGATIVE Negative RBC-Urine 0-2 0-2 Mupaevyufgxj-Hk-EGQ NEGATIVE Negative Specific [place]-Ur 1.008 Low 1.010-1.030 WBC-Urine 0-2 0-5 Laboratory [...] use. Test developed and characteristics determined by [facility]. See Compliance Statement B: [facility]/CS Procedure Result Units Ref Interval AMPHETAMINES, Serum [...] laboratory. Test developed and characteristics determined by [facility]. See Compliance Statement B: [facility]/ Methamphetamine, S/P, Quant <20 ng/mL MDA, S/P, Quant <20 ng/mL MDMA, S/P, Quant <20 ng/mL MDEA, S/P, Quant <20 ng/mL Test Performed by: [facility] [address] [place], [place] [id number] [email or web address] Roni Germain MD - Director of Laboratories --- 04/24/17 1019 --- Ref Lab Test previously reported as: See Comment Test Result Flag Unit RefValue DRUG ABUSE SCREEN 9 See Comment Testing is complete. Final report has been sent to the referring laboratory. Test Performed by: [facility] [address] [place] [address] 2 Adult MCV greater than 105 fl [...] Source: vaginal 12 SEE RESULT BELOW Name: KRIS GHOSH : [address]: Bin Jin MD Acct: [id number] Unit: [id number] AGE: 29 Location: ED Re06/14/15 SEX: F Status: DEP ER SPEC: [id number] VAUGHN: 06/14/15-[address]: Bin Jin MD REQ: [id number] RECD: 06/14/15-172 STATUS: ELSA OREILLY DR: Tez Whitten MD _ SOURCE: VAGINAL SPDESC: ORDERED: ShruthiYeast DNA Procedure Result Verified Site Gardnerella/Yeast: Vaginal [...] or failure. * ML - MAIN LAB ([facility]) . END OF REPORT * ML=Testing performed at Main Lab DEPARTMENT OF PATHOLOGY, [address] [place] [address] Natan Go M.D. Director [facility] # [id number] Female urine specimens have been self-validated by [facility] and have been granted conditional assay approval by [facility]. 14 [facility] Specimen Source: vaginal GC/Chlamydia Source?: Endocervical Trichomonas [...] <15 (or dialysis) 16 RUN DATE: 10/17/14 [facility] LIVE PAGE 1 RUN TIME: [address] [place] [address] Specimen Inquiry Name: KRIS GHOSH : [address]: Tez Whitten MD Acct: [id number] Unit: [id number] AGE: 28 Location: [facility] Re10/15/14 SEX: F Status: REG REF SPEC: [id number] VAUGHN: 10/15/14-[address] [facility] [address]: Tez Whitten MD REQ: [id number] RECD: 10/15/14615 STATUS: COMP _ SOURCE: URINE SPDESC: ORDERED: Urine Culture QUERIES: Provider Requisition # [id number] Procedure Result Verified Site Urine Culture Final 10/17/14- 920 ML Organism 1 ESCHERICHIA COLI [place] Count 75-100,000 (Many) CFU/ML 1. ESCHERICHIA COLI [...] performed at Main Lab DEPARTMENT OF PATHOLOGY, [address] [place] [address] Natan Go M.D. Director [facility] # [id number] 17 Because ethnic data is not always [...] screening test (e.g., EIA). Test Performed by: [address] [address] Search Engine Optimization Analyst: Louie Beckwith III, M.D. 23 Because ethnic [...] <15 (or dialysis) 24 RUN DATE: 07/22/12 [facility] LIVE PAGE 1 RUN TIME: [address] [place] [address] Specimen Inquiry Name: KRIS GHOSH : [address]: Tim Sandoval MD Acct: [id number] Unit: [id number] AGE: 26 Location: ED Re07/21/12 SEX: F Status: DEP ER SPEC: [id number] VAUGHN: 07/21/[address]: Tim Sandoval MD REQ: [id number] RECD: 07/21/12 STATUS: ELSA OREILLY DR: Tez Whitten MD SOURCE: VAGINAL SPDESC: ORDERED: Affirm Procedure Result Verified Site Affirm Vaginal DNA Probe Final 07/22/12- 144 ML Trichomonas Negative Gardnerella Negative Fabiana Negative [...] performed at Main Lab DEPARTMENT OF PATHOLOGY, [address] [place] [address] Natan Go M.D. Director [facility] Permit #[id number] RUN DATE: 07/24/12 [facility] LIVE PAGE 1 RUN TIME: [address] [place] [address] Specimen Inquiry Name: KRIS GHOSH Anna : [address]: Tim Sandoval MD Acct: [id number] Unit: [id number] AGE: 26 Location: ED Re07/21/12 SEX: F Status: DEP ER SPEC: [id number] VAUGHN: 07/21/[address] [facility] [address]: Tim Sandoval MD REQ: [id number] RECD: 07/21/12 STATUS: ELSA OREILLY DR: Fish ROSADOTez _ SOURCE: [facility]: ORDERED: GC/Chlam RNA Procedure Result Verified Site [...] performed at Main Lab DEPARTMENT OF PATHOLOGY, [facility] [place], [place] [address] Natan Go M.D. Director [facility] Permit #[id number] RUN DATE: 07/24/12 [facility] LIVE PAGE 2 RUN TIME: 3984 [facility] [place], [place] [address] Specimen Inquiry Patient: KRIS GHOSH [id number] (Continued) Specimen: [id number] Collected: 07/21/12 Received: 07/21/12 (Continued) Procedure Result Verified Site GC (N. gonorrhoeae) RNA Final (continued) 07/24/12 135 N. gonorrhoeae are derived from high prevalence populations. Positive results in low prevalence populations should be interpreted carefully with the understanding that the likelihood of a false positive may be higher than a true positive. END OF REPORT * ML=Testing performed at Main Lab DEPARTMENT OF PATHOLOGY, [facility] [place], [place] [address] Natan Go M.D. Director [facility] Permit #[id number] 26 RUN DATE: 07/22/12 [facility] LIVE PAGE 1 RUN TIME: 905 [facility] [place], [place] [address] Specimen Inquiry Name: KRIS GHOSH : [address]: Tim Sandoval MD Acct: [id number] Unit: [id number] AGE: 26 Location: ED Re07/21/12 SEX: F Status: DEP ER SPEC: [id number] VAUGHN: 07/21/[address]: Tim Sandoval MD REQ: [id number] RECD: 07/21/12 STATUS: COMP OTHR DR: Fish ROSADO,Tez _ SOURCE: STOOL SPDESC: ORDERED: Hemoccult Procedure Result Verified Site Stool Specimen Description Final 07/22/12- 06 ML Test not performed Stool Occult Blood Final 07/21/12- 2350 ML Stool Occult Blood Negative END OF REPORT * ML=Testing performed at Main Lab DEPARTMENT OF PATHOLOGY, [address] [place] [address] Natan Go M.D. Director [place] Permit #[id number] 27 A metabolite of Naproxen, O-desmethylnaproxen, has been shown to interfere with the Jend[place]-Tennille method for measuring total bilirubin. Samples from [...] has been shown to interfere with the Jendrassik-Tennille method for measuring total bilirubin. Samples from [...] <15 (or dialysis) 32 RUN DATE: 07/17/12 [facility] LIVE PAGE 1 RUN TIME: [address] [place] [address] Specimen Inquiry Name: KRIS GHOSH : [address]: Monique Webb NP Acct: [id number] Unit: [id number] AGE: 26 Location: [facility] Re07/16/12 SEX: F Status: REG REF SPEC: [id number] VAUGHN: 07/16/12-[address]: Monique Webb NP REQ: [id number] RECD: 07/16/12 STATUS: COMP _ SOURCE: STOOL SPDESC: ORDERED: C. diff Amp DNA QUERIES: [employer] Number [id number] Procedure Result Verified Site C. difficile Amplified [...] performed at Main Lab DEPARTMENT OF PATHOLOGY, [facility] [place], [place] [address] Natan Go M.D. Director [facility] Permit #[id number] 33 RUN DATE: 07/17/12 [facility] LIVE PAGE 1 RUN TIME: 1040 [facility] [place], [place] [address] Specimen Inquiry Name: KRIS GHOSH : [address]: Monique Webb NP Acct: [id number] Unit: [id number] AGE: 26 Location: [facility] Re07/16/12 SEX: F Status: REG REF SPEC: [id number] VAUGHN: 07/16/[address]: Monique Webb NP REQ: [id number] RECD: 07/16/12 STATUS: RES _ SOURCE: STOOL SPDESC: ORDERED: E.coli O157:H7, Hemoccult, Stool Culture, Fecal Lactoferr, O P: Giar/Cry QUERIES: Medent Number [id number] Procedure Result Verified Site E.coli O157:H7 Culture [...] performed at Main Lab DEPARTMENT OF PATHOLOGY, [address] [place] [address] Natan Go M.D. Director [facility] Permit #[id number] 34 RUN DATE: 07/19/12 [facility] LIVE PAGE 1 RUN TIME: [address] [place], [place] [address] Specimen Inquiry Name: KRIS GHOSH : [address]: Monique Webb NP Acct: [id number] Unit: [id number] AGE: 26 Location: [facility] Re07/16/12 SEX: F Status: REG REF SPEC: [id number] VAUGHN: 07/16/12-1534 [facility] [address]: Monique Webb NP REQ: [id number] RECD: 07/16/12953 STATUS: COMP _ SOURCE: STOOL SPDESC: ORDERED: E.coli O157:H7, Hemoccult, Stool Culture, Fecal Lactoferr, O P: Coleen/Cry QUERIES: Medent Number [id number] Procedure Result Verified Site E.coli O157:H7 Culture [...] performed at Main Lab DEPARTMENT OF PATHOLOGY, [facility], [place] [address] Natan Go M.D. Director [facility] Permit #[id number] RUN DATE: 07/19/12 [facility] LIVE PAGE 2 RUN TIME: 1106 [facility] [place], [place] [address] Specimen Inquiry Patient: KRIS GHOSH [id number] (Continued) Specimen: [id number] Collected: 07/16/12 Received: 07/16/12 (Continued) Procedure Result [...] is requested. Contact the Microbiology Department at [phone]. TEST LIMITATIONS: As with all diagnostic procedures, [...] performed at Main Lab DEPARTMENT OF PATHOLOGY, [facility] [address] Natan Go M.D. Director [facility] Permit #[id number] 35 RUN DATE: 07/18/12 [facility] LIVE PAGE 1 RUN TIME: 1445 [facility] [place], [place] [address] Specimen Inquiry Name: KRIS GHOSH : [address]: Monique Webb NP Acct: [id number] Unit: [id number] AGE: 26 Location: [facility] Re07/16/12 SEX: F Status: REG REF SPEC: [id number] VAUGHN: 07/16/12 [facility] [address]: Monique Webb NP REQ: [id number] RECD: 07/16/12 STATUS: RES _ SOURCE: STOOL SPDESC: ORDERED: E.coli O157:H7, Hemoccult, Stool Culture, Fecal Lactoferr, O P: Coleen/Daryn QUERIES: [facility] Number [id number] Procedure Result Verified Site E.coli O157:H7 Culture [...] performed at Main Lab DEPARTMENT OF PATHOLOGY, [facility], [place] [address] Natan Go M.D. Director [facility] Permit #[id number] RUN DATE: 07/18/12 [facility] LIVE PAGE 2 RUN TIME: 230 [facility] [place], [place] [address] Specimen Inquiry Patient: KRIS GHOSH [id number] (Continued) Specimen: [id number] Collected: 07/16/12-1533 Received: 07/16/12-1734 (Continued) Procedure Result Verified Site O P: [...] is requested. Contact the Microbiology Department at [phone]. TEST LIMITATIONS: As with all diagnostic procedures, [...] performed at Main Lab DEPARTMENT OF PATHOLOGY, [facility] [place], [place] [address] Natan Go M.D. Director [facility] Permit #[id number] 36 RUN DATE: 07/17/12 [facility] LIVE PAGE 1 RUN TIME: [address] [place], [place] [address] Specimen Inquiry Name: IZABEL GHOSHDIEUDONNE Castillo : [address]: Monique Webb NP Acct: [id number] Unit: [id number] AGE: 26 Location: [facility] Re07/16/12 SEX: F Status: REG REF SPEC: [id number] VAUGHN: 07/16/[address]: Monique Webb NP REQ: [id number] RECD: 07/16/12 STATUS: RES _ SOURCE: STOOL SPDESC: ORDERED: E.coli O157:H7, Hemoccult, Stool Culture, Fecal Lactoferr, O P: Coleen/Daryn QUERIES: Medent Number [id number] Procedure Result Verified Site E.coli O157:H7 Culture [...] performed at Main Lab DEPARTMENT OF PATHOLOGY, [facility] [place], [place] [address] Natan Go M.D. Director [facility] Permit #[id number] RUN DATE: 07/18/12 [facility] LIVE PAGE 1 RUN TIME: 5061 [facility] [place], [place] [address] Specimen Inquiry Name: KRIS GHOSH : [address]: Monique Webb NP Acct: [id number] Unit: [id number] AGE: 26 Location: [facility] Re07/16/12 SEX: F Status: REG REF SPEC: [id number] VAUGHN: 07/16/12-[address]: Monique Webb NP REQ: [id number] RECD: 07/16/12 STATUS: RES _ SOURCE: STOOL SPDESC: ORDERED: E.coli O157:H7, Hemoccult, Stool Culture, Fecal Lactoferr, O P: Coleen/Daryn QUERIES: Medent Number [id number] Procedure Result Verified Site E.coli O157:H7 Culture [...] performed at Main Lab DEPARTMENT OF PATHOLOGY, [facility] [place] [address] Natan Go M.D. Director [facility] Permit #[id number] RUN DATE: 07/18/12 [facility] LIVE PAGE 2 RUN TIME: 1015 [facility] [place], [place] [address] Specimen Inquiry Patient: KRIS GHOSH [id number] (Continued) Specimen: [id number] Collected: 07/16/12-1533 Received: 07/16/12 (Continued) Procedure Result Verified Site O P: Giardia/Cryptospor Screen PENDING END OF REPORT * ML=Testing performed at Main Lab DEPARTMENT OF PATHOLOGY, [facility] [place], [place] [address] Natan Go M.D. Director [facility] Permit #[id number] RUN DATE: 07/18/12 [facility] LIVE PAGE 1 RUN TIME: [address] [place] [address] Specimen Inquiry Name: KRIS GHOSH : [address]: Monique Webb NP Acct: [id number] Unit: [id number] AGE: 26 Location: [facility] Re07/16/12 SEX: F Status: REG REF SPEC: [id number] VAUGHN: 07/16/[address] [facility] [address]: Monique Webb NP REQ: [id number] RECD: 07/16/12 STATUS: COMP _ SOURCE: URINE SPDESC: ORDERED: Urine Culture QUERIES: Medent Number [id number] Procedure Result Verified Site Urine Culture Final 07/18/12- 1111 ML Organism 1 NORMAL LINDA [place] Count 10-25,000 (Moderate) CFU/ML END OF REPORT * ML=Testing performed at Main Lab DEPARTMENT OF PATHOLOGY, [address] [place] [address] Natan Go M.D. Director [facility] Permit #[id number] RUN DATE: 02/22/12 [facility] TIME: 836 Specimen Inquiry RUN USER: INTERFACE Name: KRIS GHOSH Status: REG REF Re02/20/12 Age/Sex: 26/F Unit#: [id number] Location: [facility]. : [birth year] SPEC #: [id number] VAUGHN: 02/20/12 STATUS: COMP REQ #: [id number] RECD: 02/20/[address]: Tez Whitten MD SOURCE: STOOL ENTR: 02/20/[address]: JOSE ANGEL: ORDERED: STOOL CULTURE, O P: GIAR/CRYP, STL LACTOFERRIN ACT WKST: B 02/21/12 #1 Procedure Result Verified Site > STOOL CULT SENSITIVITY Final -835 ML NEGATIVE FOR THE ENTERIC PATHOGENS - SALMONELLA, SHIGELLA, AEROMONAS, PLESIOMONAS AND YERSINIA. VIBRIO AND E. COLI 0157 NOT ROUTINELY TESTED FOR IN A STOOL CULTURE. PLEASE SUBMIT SAMPLE WITH SPECIFIC REQUEST FOR DESIRED ORGANISM(S). > STOOL SPECIMEN DESCRIPTION Final -2117 ML STOOL COLOR BROWN STOOL FORM NONFORMED STOOL CONSISTENCY PASTY > CAMPYLOBACTER CULTURE Final -835 ML NO GROWTH OF CAMPYLOBACTER AFTER 48 [...] is requested. Contact the Microbiology Department at [phone]. TEST LIMITATIONS: As with all diagnostic procedures, the results obtained should be used in conjunction with other clinical information available the physician. Negative results can occur in samples containing antigen below lower limits of DEPARTMENT OF PATHOLOGY, [address] [place] [address] [facility] Permit #[id number] Roderick Avery M.D. Rounding Machine Operator RUN DATE: 02/22/12 [facility] NMI LIVE PAGE 2 RUN TIME: 1409 Specimen Inquiry RUN USER: INTERFACE Name: KRIS GHOSH Status: REG REF Re02/20/12 Age/Sex: 26/F Unit#: [id number] Location: Delilah Waggoner. : 81 -- -- CONTINU ED Procedure [...] not be used with this assay. - [facility] Permit #[id number] [address] [place] [address] DEPARTMENT OF PATHOLOGY, [address] [place] [address] [facility] Permit #[id number] Natan Go M.D. Director Carly Kenyon M.D. Rounding Machine Operator 40 Anion gap measurement may be of limited value in the presence of any alkalosis, especially in a combined acid base disorder. . 41 A metabolite of Naproxen, O-desmethylnaproxen, has been shown to interfere with the Jencecelia-Sharon method for measuring total bilirubin. Samples from [...] has been shown to interfere with the Jendrassik-Tennille method for measuring total bilirubin. Samples from [...] Procedures Date CPT Code Description Status 01/09/2015 68165 EKG, at Least 12 Leads w/Interpretation and Report Completed 01/02/2015 85625 Removal Of IUD Completed 02/06/2014 21088 IUD Insertion Completed Encounters Type Date Location Provider CPT E/M Dx Office Visit 04/14/2017 4:45p Main Office Monique Webb CONCRETE HOPPER OPERATOR-C 74802 G24.8 Office Visit 04/07/2017 10:45a Main Office Aysha Connor CONCRETE HOPPER OPERATOR-C 48443 F32.89 Office Visit 01/23/2017 12:00p Main Office Monique Webb CONCRETE HOPPER OPERATOR-C 90189 K03.2 Office Visit 01/05/2017 3:30p Main Office Aysha Connor CONCRETE HOPPER OPERATOR-C 15457 K03.2 Office Visit 01/02/2017 10:45a Main Office Aysha Connor CONCRETE HOPPER OPERATOR-C 80096 K03.2 Office Visit 12/19/2016 11:30a Main Office Aysha Connor CONCRETE HOPPER OPERATOR-C 68350 F32.89 K03.2 Office Visit 12/15/2016 5:00p [place] [address] K03.2 Office Visit 11/21/2016 2:15p Main Office Aysha Connor CONCRETE HOPPER OPERATOR-C 29983 F32.89 Office Visit 09/08/2016 4:30p Main Office Tez Whitten M.D. 66002 F41.9 Office Visit 08/03/2016 3:15p [place] [address] F41.9 Office Visit 07/29/2016 11:30a Main Office Bin Lazaro III, CONCRETE HOPPER OPERATOR-C 96289 K03.2 Office Visit 07/02/2016 10:45a Main Office Monique Webb CONCRETE HOPPER OPERATOR-C 06984 O91.23 Office Visit 05/05/2016 3:45p Main Office Aysha Connor CONCRETE HOPPER OPERATOR-C 58776 O91.23 Office Visit 02/16/2016 11:45a Main Office Aysha Connor CONCRETE HOPPER OPERATOR-C 79197 H10.023 Office Visit 10/24/2015 11:30a [place] [address] K21.9 Office Visit 06/30/2015 1:45p Main Office MICAELA Schafer-C 58155 Z33.1 F33.1 K21.9 Z72.0 G47.00 Office Visit 06/15/2015 3:45p Main Office YIFAN RamosC 46859 O00.9 Office Visit 04/07/2015 2:00p Main Office YIFAN RamosC 12575 724.5 Office Visit 02/18/2015 3:30p Main Office Tez Whitten M.D. 87557 465.9 Office Visit 01/02/2015 2:30p Main Office MICAELA Schafer-C 97805 V25.9 780.52 Office Visit 10/15/2014 2:45p Main Office Tez Whitten M.D. 54466 599.0 Office Visit 08/25/2014 11:30a Main Office MICAELA Schafer-C 88736 376.01 Office Visit 08/05/2014 3:15p Main Office RADHA Ramos 84782 611.9 Office Visit 03/14/2014 3:15p Main Office RADHA Ramos 85332 704.2 783.21 Office Visit 02/04/2014 2:15p Main Office Tez Whitten M.D. 31098 724.5 Office Visit 08/26/2013 10:00a Main Office Izabella Whittington M.D. 82049 708.0 522.5 300.02 Office Visit 08/20/2013 2:00p Main Office Tez Whitten M.D. 91844 708.0 Office Visit 04/10/2013 11:45a Main Office Tez Whitten M.D. 91494 311 Office Visit 12/25/2012 1:30p Main Office RADHA Ramos 84936 461.9 Office Visit 12/14/2012 4:00p Main Office RADHA Ramos 47547 528.5 Office Visit 07/31/2012 9:00a Main Office RADHA Ramos 82557 008.45 Office Visit 07/16/2012 2:45p Main Office RADHA Ramos 01724 787.91 Office Visit 01/25/2012 3:15p Main Office Tez Whitten M.D. 96111 789.07 Office Visit 01/09/2012 12:00p Main Office RADHA Ramos 59452 848.8 Office Visit 07/18/2011 11:30a Main Office Izabella Whittington M.D. 04848 847.1 Office Visit 06/30/2011 11:30a Main Office Tez Whitten M.D. 17621 527.2 Office Visit 06/16/2011 3:30p Main Office Tez Whitten M.D. 35862 465.9 Office Visit 06/09/2011 3:45p Main Office Tez Whitten M.D. 04199 311 305.00 Office Visit 12/03/2010 10:45a Main Office Tez Whitten M.D. 95099 305.00 311 530.81 465.9 305.1 Office Visit 10/05/2010 10:45a Main Office Tez Whitten M.D. 07880 305.00 311 530.81 305.1 Office Visit 12/15/2009 10:45a Main Office Tez Whitten M.D. 95600 311 530.81 Office Visit 11/21/2008 9:45a Main Office Tez Whitten M.D. 38705 727.04 311 Office Visit 01/30/2008 9:30a Main Office Tez Whitten M.D. 20645 311 Office Visit 01/03/2008 2:00p Main Office Tez Whitten M.D. 40839 311 Office Visit 11/12/2007 3:00p Main Office Hipolito Tatum M.D. 74770 461.0 Office Visit 10/23/2007 3:00p Main Office Tez Whitten M.D. 06961 787.1 Office Visit 08/22/2007 2:15p Main Office Tez Whitten M.D. 31831 787.1 780.52 Office Visit 08/08/2007 10:00a Main Office Tez Whitten M.D. 13105 789.02 Office Visit 07/31/2007 2:15p Main Office Tez Whitten M.D. 43786 787.1 Office Visit 11/01/2006 9:45a Main Office Tez Whitten M.D. 58859 V70.0 311 787.1 305.1 289.89 Office Visit 07/06/2006 11:00a Main Office Tez Whitten M.D. 82462 558.9 311 Plan of Care Future Appointment(s):10/24/2017 2:00 pm - Tez Whitten M.D. at Main [id number] - Tez Whitten M.D.F32.9 Major depressive disorder, single episode, unspecifiedComments:Will restart Effexor to avoid withdrawal symptoms.She agrees to contract for her safety.She agrees to call [facility] to request semi-urgent evaluation.She will return here in one weekFollow up:1 week.
--- NOTE | 2017-11-04 19:15 | RAD ---
INDICATION: Fifth digit pain RIGHT hand following punching injury. COMPARISON: No relevant prior exams available on the [facility] for comparison. TECHNIQUE: AP, lateral, and oblique views RIGHT hand. REPORT: Distal metaphyseal fracture of the fifth metacarpal with approximate 30 degrees apex ulnar dorsal angulation. Overlying soft tissue swelling. Normal articular alignment. IMPRESSION: Boxer's fracture.
[2017-11-04] MEDS ORDERED: Ibuprofen TAB* 600 MG PO ONE (20:02)
--- NOTE | 2017-11-04 20:02 | ED ---
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 States since she has had pain at 5th pip and swelling. Unable to move without pain. Denies any significant numbness/tingling. No other complaints at this time. No wrist or arm pain. Right hand dominant. 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 No PMHx. - History of Current Complaint Chief Complaint: EDExtremityUpper Stated Complaint: HAND INJURY Time Seen by Provider: 11/04/17 18:11 Hx Obtained From: Patient Hx Last Menstrual Period: UNK Mechanism Of Injury: Direct Blow - punched door Onset/Duration: Started Hours Ago, Traumatic, Still Present Timing: Constant Severity Initially: Moderate Severity Currently: Severe Pain Location: Hand - right hand Character: Sharp, Aching Aggravating Factor(s): Movement Alleviating Factor(s): Rest Associated Signs & Symptoms: Positive: Swelling. Negative: Weakness, Numbness/ Tingling Related History: Dominant Hand Right - Allergies/Home Medications Allergies/Adverse Reactions: Allergies Allergy/AdvReac Type Severity Reaction Status Date / Time No Known Allergies Allergy Verified 04/14/17 19:57 PMH/Surg Hx/FS Hx/Imm Hx Endocrine/Hematology History: Denies: Hx Anticoagulant Therapy, Hx Diabetes, Hx Thyroid Disease Cardiovascular History: Denies: Hx Congestive Heart Failure, Hx Hypertension, Hx Pacemaker/ICD Respiratory History: Denies: Hx Asthma, Hx Chronic Obstructive Pulmonary Disease (COPD) GI History: Reports: Hx Gastroesophageal Reflux Disease - CONTROL WITH MEDS, Other GI Disorders - GERD History: Denies: Hx Renal Disease Sensory History: Reports: Hx Contacts or Glasses - GLASSES Denies: Hx Hearing Aid Opthamlomology History: Reports: Hx Contacts or Glasses - GLASSES Neurological History: Denies: Hx Dementia, Hx Seizures Psychiatric History: Reports: Hx Anxiety, Hx Depression - on Prozac Denies: Hx Eating Disorder, Hx Substance Abuse - Surgical History Surgery Procedure, Year, and Place: 09/2008 & 01/2016 CSECTION X 2, [facility] Hx Anesthesia Reactions: No - Immunization History Date of Tetanus Vaccine: 2007 Date of Influenza Vaccine: 07/2017 Immunizations Up to Date: Yes Infectious Disease History: No Infectious Disease History: Reports: Hx Clostridium Difficile Denies: Hx Hepatitis, Hx Human Immunodeficiency Virus (HIV), Hx Shingles, Hx Tuberculosis, Traveled Outside the [place] in Last 30 Days - Family History Known Family History: Positive: Unknown - Pt denies family history when asked - Social History Alcohol Use: None Substance Use Type: Reports: Marijuana Substance Use Comment - Amount & Last Used: a couple of days ago Smoking Status (MU): Light Every Day Tobacco Smoker Type: Cigarettes Amount Used/How Often: OCCASIONAL 1 CIGARETTE PER DAY, SINCE FEBRUARY OF 2016 Have You Smoked in the Last Year: Yes Review of Systems Constitutional: Negative Cardiovascular: Negative Respiratory: Negative Positive: Arthralgia, Myalgia, Decreased ROM - right hand Positive: Bruising - right hand All Other Systems Reviewed And Are Negative: Yes Physical Exam Triage Information Reviewed: Yes Vital Signs On Initial Exam: Initial Vitals Temp Pulse Resp BP Pulse Ox 99.1 F 108 17 140/101 97 11/04/17 18:02 11/04/17 18:02 11/04/17 18:02 11/04/17 18:02 11/04/17 18:02 Vital Signs Reviewed: Yes Appearance: Positive: Well-Appearing, Well-Nourished, Pain Distress - moderate with touch or movement of right hand 5th pip joint Skin: Positive: Warm, Skin Color Reflects Adequate Perfusion, Dry, Other - edema to right 5th pip joint. Negative: Cold, Numb Respiratory/Lung Sounds: Positive: Clear to Auscultation, Breath Sounds Present. Negative: Rales, Rhonchi, Wheezes Cardiovascular: Positive: Normal, RRR, Pulses are Symmetrical in both Upper and Lower Extremities - 2+ radial, Other - <2 secon cap refill. Negative: Murmur, Rub Musculoskeletal: Positive: Limited @ - 5th digit due to pain of right hand, Pain @ - right fifth digit at pip, boxer fracture likely, edema noted and some bruising, rest of hand and wrist/UE normal and without tenderness or signs of trauma. no other crepitus step off or obvious deformity, Edema Right - 5th digit pip Neurological: Positive: Normal, Sensory/Motor Intact, Alert, Oriented to Person Place, Time, NV Bundle Intact Distally Procedures - Splinting Location: right hand Hand-Made Type: plaster Splint: ulnar - ulnar gutter Pre-Proc Neuro Vasc Exam: normal Post-Proc Neuro Vasc Exam: normal, unchanged from pre-exam Diagnostics - Vital Signs Vital Signs Temp Pulse Resp BP Pulse Ox 11/04/17 18:02 99.1 F 108 17 140/101 97 - Laboratory Lab Statement: Any lab studies that have been ordered have been reviewed, and results considered in the medical decision making process. - Radiology right hand Xray Interpretation: Positive (See Comments) - boxer fracture Radiology Interpretation Completed By: Radiologist Course/Dx - Course Course Of Treatment: attempted to give ibuprofen however patient refused. applied ice. patient's stay was prolonged due to attempting to remove three rings with difficulty due to swelling. xray obtained and showed boxer fracture which is significant clinically on physical exam. splint applied without complication, patient tolerated procedure well. follow up ortho. RICE and nsaids. do not get splint wet. aware of worsening signs and symptoms to watch out for. - Diagnoses Differential Diagnosis/HQI/PQRI: Positive: Fracture (Closed), Strain, Sprain Provider Diagnoses: Boxer's fracture Discharge - Discharge Plan Condition: Stable Disposition: HOME Patient Education Materials: Boxer Fracture (ED) Referrals: Tez Whitten MD [Primary Care Provider] - Vivek Zavaleta MD [Medical Doctor] - Additional Instructions: Continue taking ibuprofen for pain and inflammation. Do not get splint wet. Elevate, rest and Ice. Refrain from using hand. Follow up with ortho, call to make an appointment and have re-evaluated, cast applied. Any new or worsening symptoms please seek medical attention promptly. Follow up with PCP.
[2017-11-04 22:15] VITALS: BP 112/60
== END 2017-11-04 22:13 | disposition home or self-care (01) ==
LOC: ED 17:27
DX: S62.91XA Unspecified fracture of right hand, initial encounter for closed fracture (principal); W22.8XXA Striking against or struck by other objects, initial encounter; Y92.9 Unspecified place or not applicable; F17.210 Nicotine dependence, cigarettes, uncomplicated; Z87.19 Personal history of other diseases of the digestive system
CPT/HCPCS: 99282

== ENCOUNTER → 2017-11-22 14:20 | Emergency (ER) | payer OTHER ==
[~2017-11-22 14:20] MED LIST: Acetaminophen TAB* 325 MG PO ONE
[2017-11-22 15:42] LABS: Urine Appearance Clear; Urine Blood 1+ (Negative); Urine Color Straw; Urine Ketones Negative (Negative); Urine Protein Negative (Negative); Urine Specific Gravity 1.003 (1.010-1.030); Urine Urobilinogen Negative (Negative)
--- OUTSIDE RECORDS SUMMARY | 2017-11-22 15:43 | XMS REPORT ---
:1985 External Reference #:[id number] Author Organization [employer] Address [address] [address] Phone [phone] Care Team Providers Name Role Phone Tez Whitten M.D. 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 Denies alcohol use Smoking Patient is a current smoker, smokes every day Exercise Type/Frequency Exercises sporadically Allergies, Adverse Reactions, Alerts Date Description Reaction Status Severity Comments 11/07/2017 NKDA active Medications Medication Date Status Form Strength Qnty SIG Indications Ordering Provider Effexor XR Active Caps ER 24HR 75mg 1 by Unknown 00 mouth every day Prevacid Active Capsules DR 30mg 1 by Unknown 00 mouth every day Vital Signs Date Vital Result Comment 11/07/2017 Height 65 inches 5'5" Weight 130.00 lb Heart Rate 110 /min BP Systolic 144 mmHg BP Diastolic 94 mmHg Body Temperature 97.1 F BMI (Body Mass Index) 21.6 kg/m2 Results Description No Information Procedures Description No Information Plan of Care No Information Available
[2017-11-22 15:45] LABS: ABS Basophils 0.1 10^3/ul (0-0.2); ABS Eosinophils 0.1 10^3/ul (0-0.6); ABS Lymphocytes 3.1 10^3/ul (1.0-4.8); ABS Monocytes 0.6 10^3/ul (0-0.8); ABS Neutrophils 10.9 10^3/ul (1.5-7.7); ABS Nucleated RBC 0 10^3/ul; Eosinophil % 0.5 % (0-6); Hematocrit 42 % (35-47); Hemoglobin 14.2 g/dl (12.0-16.0); Mean Corpuscular HGB Conc 34 g/dl (31-36); Mean Corpuscular Hemoglobin 34 pg (27-31); Mean Corpuscular Volume 102 fL (80-97); Mean Platelet Volume 9 um3 (7.4-10.4); Nucleated Red Blood Cells % 0; Platelet Count 289 10^3/ul (150-450); Red Blood Count 4.14 10^6/ul (4.0-5.4); Red Cell Distribution Width 13 % (10.5-15); White Blood Count 14.8 10^3/ul (3.5-10.8)
[2017-11-22 16:07] LABS: EGFR Non-African American 110.9 (>60)
--- NOTE | 2017-11-22 17:56 | RAD ---
INDICATION: Evaluate early COMPARISON: None TECHNIQUE: Real-time transvaginal imaging was performed for evaluation. FINDINGS: There is an intrauterine gestational sac or a pseudogestational sac. The sac appears empty but this could be related to early age of gestation. The sac size corresponds to a 4 week 5 day gestation. This requires correlation with follow-up ultrasonography and serial beta-hCGs to assess for viability. The adnexa appear normal. The right ovary measures 2.2 x 1.4 x 1.4 centers in the left 2.3 x 1.9 x 2.3 cm. IMPRESSION: PROBABLE VERY EARLY INTRAUTERINE GESTATION. FOLLOW-UP IS REQUIRED NOTED ABOVE TO ASSESS FOR VIABILITY.
--- NOTE | 2017-11-22 21:54 | ED ---
Becca Woods Thomas, scribed for Curtis Rivera MD on 11/22/17 at 1505 . Psychiatric Complaint - HPI Summary HPI Summary: The patient is a 31 year old female who requests a mental health evaluation. She is and admits to using alcohol in the past as well as today. She does not know how far along she is in her . She thinks her LMP was in August 2017 or September 2017. She denies suicidal ideation. - History Of Current Complaint Chief Complaint: EDMentalHealth Time Seen by Provider: 11/22/17 14:51 Hx Obtained From: Patient Hx Last Menstrual Period: UNK Onset/Duration: Still Present Severity Currently: Moderate Aggravating Factor(s): Other - Unknown Alleviating Factor(s): Other - Unknown Associated Signs And Symptoms: Positive: Negative Has Suicidal: Denies: Thoughts Ingestion History: Type/Name Of Drug - EtOH - Allergies/Home Medications Allergies/Adverse Reactions: Allergies Allergy/AdvReac Type Severity Reaction Status Date / Time No Known Allergies Allergy Verified 11/22/17 14:34 Home Medications: Home Medications Lansoprazole CAP (NF) [Prevacid CAP (NF)] 30 mg PO DAILY 11/22/17 [History Confirmed 11/22/17] PMH/Surg Hx/FS Hx/Imm Hx Endocrine/Hematology History: Denies: Hx Anticoagulant Therapy, Hx Diabetes, Hx Thyroid Disease Cardiovascular History: Denies: Hx Congestive Heart Failure, Hx Hypertension, Hx Pacemaker/ICD Respiratory History: Denies: Hx Asthma, Hx Chronic Obstructive Pulmonary Disease (COPD) GI History: Reports: Hx Gastroesophageal Reflux Disease - CONTROL WITH MEDS, Other GI Disorders - GERD History: Denies: Hx Renal Disease Sensory History: Reports: Hx Contacts or Glasses - GLASSES Denies: Hx Hearing Aid Opthamlomology History: Reports: Hx Contacts or Glasses - GLASSES Neurological History: Denies: Hx Dementia, Hx Seizures Psychiatric History: Reports: Hx Anxiety, Hx Depression - on Prozac Denies: Hx Eating Disorder, Hx Substance Abuse - Surgical History Surgery Procedure, Year, and Place: 09/2008 & 01/2016 CSECTION X 2, [facility] Hx Anesthesia Reactions: No - Immunization History Date of Tetanus Vaccine: 2007 Date of Influenza Vaccine: 07/2017 Infectious Disease History: No Infectious Disease History: Reports: Hx Clostridium Difficile Denies: Hx Hepatitis, Hx Human Immunodeficiency Virus (HIV), Hx Shingles, Hx Tuberculosis, Traveled Outside the [place] in Last 30 Days - Family History Known Family History: Positive: Unknown - Pt denies family history when asked - Social History Alcohol Use: None Substance Use Type: Reports: Marijuana Substance Use Comment - Amount & Last Used: a couple of days ago Smoking Status (MU): Light Every Day Tobacco Smoker Type: Cigarettes Amount Used/How Often: OCCASIONAL 1 CIGARETTE PER DAY, SINCE FEBRUARY OF 2016 Have You Smoked in the Last Year: Yes Review of Systems Negative: Fever Negative: Other - suicidal ideation All Other Systems Reviewed And Are Negative: Yes Physical Exam - Summary Physical Exam Summary: General: well-appearing, no pain distress Skin: warm, color reflects adequate perfusion, dry Head: normal Eyes: EOMI, NICK ENT: normal Neck: supple, nontender Respiratory: CTA, breath sounds present Cardiovascular: RRR Abdomen: soft, nontender Bowel: present Musculoskeletal: normal, strength/ROM intact Neurological: normal, sensory/motor intact, A&O x3 Psychological: affect/mood appropriate Triage Information Reviewed: Yes Vital Signs On Initial Exam: Initial Vitals Temp Pulse Resp BP Pulse Ox 98.1 F 110 16 147/96 98 11/22/17 14:27 11/22/17 14:27 11/22/17 14:27 11/22/17 14:27 11/22/17 14:27 Vital Signs Reviewed: Yes Diagnostics - Vital Signs Vital Signs Temp Pulse Resp BP Pulse Ox 11/22/17 14:27 98.1 F 110 16 147/96 98 - Laboratory Lab Results: Lab Results 11/22/17 11/22/17 11/22/17 Range/Units 15:10 15:10 15:35 WBC (3.5-10.8) 10^3/ul RBC (4.0-5.4) 10^6/ul Hgb (12.0-16.0) g/dl Hct (35-47) % MCV (80-97) fL MCH (27-31) pg MCHC (31-36) g/dl RDW (10.5-15) % Plt Count (150-450) 10^3/ul MPV (7.4-10.4) um3 Neut % (Auto) (38-83) % Lymph % (Auto) (25-47) % [place] % (Auto) (0-7) % Eos % (Auto) (0-6) % Baso % (Auto) (0-2) % Absolute Neuts (auto) (1.5-7.7) 10^3/ul Absolute Lymphs (auto) (1.0-4.8) 10^3/ul Absolute Monos (auto) (0-0.8) 10^3/ul Absolute Eos (auto) (0-0.6) 10^3/ul Absolute Basos (auto) (0-0.2) 10^3/ul Absolute Nucleated RBC 10^3/ul Nucleated RBC % Sodium 140 (133-145) mmol/L Potassium 3.2 L (3.5-5.0) mmol/L Chloride 106 (101-111) mmol/L Carbon Dioxide 26 (22-32) mmol/L Anion Gap 8 (2-11) mmol/L BUN 10 (6-24) mg/dL Creatinine 0.62 (0.51-0.95) mg/dL Est GFR ( Amer) 142.6 (>60) Est GFR (Non-Af Amer) 110.9 (>60) BUN/Creatinine Ratio 16.1 (8-20) Glucose 106 H (70-100) mg/dL Calcium 9.3 (8.6-10.3) mg/dL Total Bilirubin 0.30 (0.2-1.0) mg/dL AST 16 (13-39) U/L ALT 11 (7-52) U/L Alkaline Phosphatase 76 (34-104) U/L Total Protein 7.4 (6.4-8.9) g/dL Albumin 4.4 (3.2-5.2) g/dL Globulin 3.0 (2-4) g/dL Albumin/Globulin Ratio 1.5 (1-3) TSH 1.82 (0.34-5.60) mcIU/mL Beta HCG, Quant 844.12 mIU/mL Urine Color Straw Urine Appearance Clear Urine pH 7.0 (5-9) Ur Specific Benton 1.003 L (1.010-1.030) Urine Protein Negative (Negative) Urine Ketones Negative (Negative) Urine Blood 1+ A (Negative) Urine Nitrate Negative (Negative) Urine Bilirubin Negative (Negative) Urine Urobilinogen Negative (Negative) Ur Leukocyte Esterase 2+ A (Negative) Urine WBC (Auto) 2+(11-20/hpf) A (Absent) Urine RBC (Auto) Trace(0-2/hpf) (Absent) Ur Squamous Epith Cells Present A (Absent) Urine Bacteria 1+ A (Absent) Urine Glucose Negative (Negative) Salicylates < 2.50 (<30) mg/dL Urine Opiates Screen None detected (None Detect) Acetaminophen < 15 mcg/mL Ur Barbiturates Screen None detected (None Detect) Ur Phencyclidine Scrn None detected (None Detect) Ur Amphetamines Screen None detected (None Detect) U Benzodiazepines Scrn None detected (None Detect) Urine Cocaine Screen None detected (None Detect) U Cannabinoids Screen None detected (None Detect) Serum Alcohol 252 H (<10) mg/dL 11/22/17 Range/Units 15:35 WBC 14.8 H (3.5-10.8) 10^3/ul RBC 4.14 (4.0-5.4) 10^6/ul Hgb 14.2 (12.0-16.0) g/dl Hct 42 (35-47) % MCV 102 H (80-97) fL MCH 34 H (27-31) pg MCHC 34 (31-36) g/dl RDW 13 (10.5-15) % Plt Count 289 (150-450) 10^3/ul MPV 9 (7.4-10.4) um3 Neut % (Auto) 73.5 (38-83) % Lymph % (Auto) 21.0 L (25-47) % [place] % (Auto) 4.2 (0-7) % Eos % (Auto) 0.5 (0-6) % Baso % (Auto) 0.8 (0-2) % Absolute Neuts (auto) 10.9 H (1.5-7.7) 10^3/ul Absolute Lymphs (auto) 3.1 (1.0-4.8) 10^3/ul Absolute Monos (auto) 0.6 (0-0.8) 10^3/ul Absolute Eos (auto) 0.1 (0-0.6) 10^3/ul Absolute Basos (auto) 0.1 (0-0.2) 10^3/ul Absolute Nucleated RBC 0 10^3/ul Nucleated RBC % 0 Sodium (133-145) mmol/L Potassium (3.5-5.0) mmol/L Chloride (101-111) mmol/L Carbon Dioxide (22-32) mmol/L Anion Gap (2-11) mmol/L BUN (6-24) mg/dL Creatinine (0.51-0.95) mg/dL Est GFR ( Amer) (>60) Est GFR (Non-Af Amer) (>60) BUN/Creatinine Ratio (8-20) Glucose (70-100) mg/dL Calcium (8.6-10.3) mg/dL Total Bilirubin (0.2-1.0) mg/dL AST (13-39) U/L ALT (7-52) U/L Alkaline Phosphatase (34-104) U/L Total Protein (6.4-8.9) g/dL Albumin (3.2-5.2) g/dL Globulin (2-4) g/dL Albumin/Globulin Ratio (1-3) TSH (0.34-5.60) mcIU/mL Beta HCG, Quant mIU/mL Urine Color Urine Appearance Urine pH (5-9) Ur Specific Benton (1.010-1.030) Urine Protein (Negative) Urine Ketones (Negative) Urine Blood (Negative) Urine Nitrate (Negative) Urine Bilirubin (Negative) Urine Urobilinogen (Negative) Ur Leukocyte Esterase (Negative) Urine WBC (Auto) (Absent) Urine RBC (Auto) (Absent) Ur Squamous Epith Cells (Absent) Urine Bacteria (Absent) Urine Glucose (Negative) Salicylates (<30) mg/dL Urine Opiates Screen (None Detect) Acetaminophen mcg/mL Ur Barbiturates Screen (None Detect) Ur Phencyclidine Scrn (None Detect) Ur Amphetamines Screen (None Detect) U Benzodiazepines Scrn (None Detect) Urine Cocaine Screen (None Detect) U Cannabinoids Screen (None Detect) Serum Alcohol (<10) mg/dL Result Diagrams: 11/22/17 15:35 11/22/17 15:35 Lab Statement: Any lab studies that have been ordered have been reviewed, and results considered in the medical decision making process. Course/Dx - Course Course Of Treatment: DISPOSITION AND MHE PENDING AT SHIFT CHANGE - Differential Dx/Clinical Impression Provider Diagnosis: Mental health problem, , Alcohol intoxication Discharge - Discharge Plan Condition: Stable Disposition: OTHER Discharge Disposition Comment: . Prescriptions: Pnv No.95/Ferrous Fum/Folic AC [ Vitamin Tablet] 1 each PO DAILY #90 tablet Referrals: Tez Whitten MD [Primary Care Provider] - The documentation as recorded by the Becca lipscomb Thomas accurately reflects the service I personally performed and the decisions made by me, Curtis Rivera MD.
[2017-11-23 02:20] VITALS: BP 156/96
--- NOTE | 2017-11-23 02:33 | ED ---
Doris Woods Gabriel, scribed for Paramjit Pacheco MD on 11/23/17 at 0212 . Progress - Progress Note Progress Note: The patient was signed out from Dr. Rivera awaiting MHE. After MHE by Dr. Valdez the patient was deemed stable to do go home. Dx of anxiety and depression. Pt has no SI or HI currently. - Consult/PCP Time Called: 22:42 Course/Dx - Course Course Of Treatment: The patient was signed out from Dr. Rivera awaiting MHE. After MHE by Dr. Valdez the patient was deemed stable to do go home. Dx of anxiety and depression. Pt has no SI or HI currently. - Diagnoses Provider Diagnoses: Anxiety, Depression The documentation as recorded by the Doris lipscomb Gabriel accurately reflects the service I personally performed and the decisions made by me, Paramjit Pacheco MD.
== END ==
LOC: ED 14:20
DX: O99.311 Alcohol use complicating pregnancy, first trimester (principal); O99.341 Other mental disorders complicating pregnancy, first trimester; O99.331 Smoking (tobacco) complicating pregnancy, first trimester; Z3A.01 Less than 8 weeks gestation of pregnancy
CPT/HCPCS: 36415; 76815; 80053; 80307; 80320; 80329; 81003; 81015; 84443; 84702; 85025; 87077; 87086; 87186; 99284; A9270-GY; G0480

== ENCOUNTER 2019-05-31 21:23 | Emergency (ER) | payer OTHER ==
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
[2019-05-31] MEDS ORDERED: oxyCODONE/Acetamin 5/325 MG* TAB PO ONE (22:00)
[2019-05-31 23:01] VITALS: BP 148/89
== END 2019-05-31 23:21 | disposition home or self-care (01) ==
LOC: ED 21:23
DX: S42.011A Anterior displaced fracture of sternal end of right clavicle, initial encounter for closed fracture (principal); W03.XXXA Other fall on same level due to collision with another person, initial encounter; Y92.009 Unspecified place in unspecified non-institutional (private) residence as the place of occurrence of the external cause; K21.9 Gastro-esophageal reflux disease without esophagitis; F41.9 Anxiety disorder, unspecified; F32.9 Major depressive disorder, single episode, unspecified; F17.210 Nicotine dependence, cigarettes, uncomplicated; Z79.899 Other long term (current) drug therapy
CPT/HCPCS: 99282; A9270-GY

== ENCOUNTER 2019-06-07 09:42 | Day surgery (SDC) | payer OTHER ==
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
[~2019-06-07 09:42] MED LIST changes: -Acetaminophen TAB* 325 MG PO ONE; +Buffered Lidocaine 1% SYRIN* 1 ML/SYRINGE INTRADERM ONE; +Lactated Ringers 1000 ML Bag* 1,000 ML IV SCH
[2019-06-07] MEDS ORDERED: ceFAZolin 2 GM in NS PREMIX(*) 2 GM/100 ML BAG IVPB ONE (09:51)
[2019-06-07] MEDS ORDERED: Lidocaine 2% PF * 5 ML VIAL ONE (11:17)
[2019-06-07] MEDS ORDERED: Propofol* 10 MG/ML 20 ML BTL ONE (11:17)
[2019-06-07] MEDS ORDERED: Bupivacaine 0.5% W/EPI SDV* 30 ML VIAL ONE (11:22)
[2019-06-07] MEDS ORDERED: fentaNYL* 50 MCG/ML 2 ML VIAL (100 MCG VIAL) ONE ×3 (11:26→13:19)
[2019-06-07] MEDS ORDERED: Scopolamine 1.5 mg* PATCH TRANSDERM PRN (12:00)
[2019-06-07] MEDS ORDERED: DiMENhydriNATE IV* 50 MG/ML VIAL IV PUSH PRN (12:00)
[2019-06-07] MEDS ORDERED: Naloxone* 0.4 MG/ML 1 ML VIAL IV PRN (12:00)
[2019-06-07] MEDS ORDERED: Acetaminophen IV 1GM/100ML * 1,000 MG/100 ML VIAL IVPB ONE (12:00)
[2019-06-07] MEDS ORDERED: Acetaminophen IV 1GM/100ML * 100 ML ONE (13:18)
[2019-06-07] MEDS: fentaNYL* 50 MCG/ML 2 ML VIAL (100 MCG VIAL) IV PRN ×2 (13:25→13:42)
[2019-06-07] MEDS ORDERED: oxyCODONE ORAL.SOLN* 5 MG/5 ML UDC ONE (14:16)
[2019-06-07 15:20] VITALS: BP 136/88
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
== END 2019-06-07 14:52 | disposition home or self-care (01) ==
LOC: OREAST 09:42
PROVIDERS: ATTEND Orthopaedic Surgery
DX: S42.021A Displaced fracture of shaft of right clavicle, initial encounter for closed fracture (principal); Y04.2XXA Assault by strike against or bumped into by another person, initial encounter; Y92.9 Unspecified place or not applicable; K21.9 Gastro-esophageal reflux disease without esophagitis; F41.8 Other specified anxiety disorders; F17.210 Nicotine dependence, cigarettes, uncomplicated
CPT/HCPCS: 81025; A9270-GY; C1713; C1776; J0690; J2704; J3010